=== PATIENT | female | born 1990 | race Caucasian/White ===

== ENCOUNTER 2018-09-02 15:23 | Emergency (ER) | payer OTHER ==
[2018-09-02 15:50] VITALS: BP 112/67; PULSE 71; TEMP 98.9; BMI 29.1
--- NOTE | 2018-09-02 15:59 | PDOC ---
Rapid Medical Evaluation Chief Complaint: Pain, Acute Time Seen by Provider: 09/02/18 15:51 Medical Evaluation: Allergies Allergy/AdvReac Type Severity Reaction Status Date / Time No Known Allergies Allergy Verified 09/02/18 15:46 Vital Signs Temp Pulse Resp BP Pulse Ox 98.9 F 71 18 112/67 99 09/02/18 15:47 09/02/18 15:47 09/02/18 15:47 09/02/18 15:47 09/02/18 15:47 09/02/18 15:55 I have performed a brief in-person evaluation of this patient. The patient presents with a chief complaint of: epigastric pain for over a month which started during and persistent after aa delivery a month ago. report 2 episodes of vomiting yesterday. report she was told during to decrease acid food intake Pertinent physical exam findings: mild epigastric pain . no rebound or gaurding. normal bowel sounds I have ordered the following: UA, UCX. abd ultrasound The patient will proceed to the ED for further evaluation. Discharge Disposition - Diagnosis Epigastric abdominal pain - Referrals - Patient Instructions - Post Discharge Activity
--- NOTE | 2018-09-02 16:36 | PDOC ---
History of Present Illness - General Chief Complaint: Pain, Acute Stated Complaint: ABD PAIN Time Seen by Provider: 09/02/18 15:51 History Source: Patient Exam Limitations: No Limitations - History of Present Illness Initial Comments: 09/02/18 19:24 Patient is a 28-year-old female status post 1 month ago who presents to the emergency department for epigastric pain. Patient states that she's had the pain for 3 days and his gotten worse. She states that she had similar pains while she was . The pain came and went but was never constant. She states that now she is thrown up twice due to the pain. She states that the pain feels like a burning sensation. Denies fevers, chills, difficulty breathing , diarrhea, constipation, frequency and urgency. Past History - Travel Traveled outside of the country in the last 30 days: No Close contact w/someone who was outside of country & ill: No - Past Medical History Allergies/Adverse Reactions: Allergies Allergy/AdvReac Type Severity Reaction Status Date / Time No Known Allergies Allergy Verified 09/02/18 15:46 Home Medications: Ambulatory Orders Famotidine [Pepcid -] 20 mg PO DAILY #7 tablet 09/02/18 COPD: No - Suicide/Smoking/Psychosocial Hx Smoking History: Never smoked Hx Alcohol Use: No Drug/Substance Use Hx: No Review of Systems - Review of Systems Able to Perform ROS?: Yes Comments:: 09/02/18 16:35 CONSTITUTIONAL: Absent: fever, chills, diaphoresis, generalized weakness, malaise, loss of appetite HEENT: Absent: rhinorrhea, nasal congestion, throat pain, throat swelling, difficulty swallowing, mouth swelling, ear pain, eye pain, visual Changes CARDIOVASCULAR: Absent: chest pain, loss of consciousness, palpitations, irregular heart rate, peripheral edema RESPIRATORY: Absent: cough, shortness of breath, dyspnea with exertion, orthopnea, wheezing, stridor, hemoptysis GASTROINTESTINAL: Present: abdominal pain Absent: abdominal pain, abdominal distension, nausea, vomiting, diarrhea, constipation, melena, hematochezia GENITOURINARY: Absent: dysuria, frequency, urgency, hesitancy, hematuria, flank pain, genital pain MUSCULOSKELETAL: Absent: myalgia, arthralgia, joint swelling SKIN: Absent: rash, itching, pallor HEMATOLOGIC/IMMUNOLOGIC: Absent: easy bleeding, easy bruising, lymphadenopathy, frequent infections ENDOCRINE: Absent: unexplained weight gain, unexplained weight loss, heat intolerance, cold intolerance NEUROLOGIC: Absent: headache, focal weakness or paresthesias, dizziness, unsteady gait, seizure, mental status changes, bladder or bowel incontinence PSYCHIATRIC: Absent: anxiety, depression, suicidal or homicidal ideation, hallucinations. Is the patient limited Kyrgyz proficient: No *Physical Exam - Vital Signs Last Vital Signs Temp Pulse Resp BP Pulse Ox 98.9 F 71 18 112/67 99 09/02/18 15:47 09/02/18 15:47 09/02/18 15:47 09/02/18 15:47 09/02/18 15:47 - Physical Exam Comments: 09/02/18 16:36 GENERAL: Well developed, well nourished. Awake and alert. No acute distress. HEENT: Normocephalic, atraumatic. PERRLA, EOMI. No conjunctival pallor. Sclera are non- icteric. Moist mucous membranes. Oropharynx is clear. NECK: Supple. Full ROM. No JVD. Carotid pulses 2+ and symmetric, without bruits. No thyromegaly. No lymphadenopathy. CARDIOVASCULAR: Regular rate and rhythm. No murmurs, rubs, or gallops. Distal pulses are 2+ and symmetric. PULMONARY: No evidence of respiratory distress. Lungs clear to auscultation bilaterally. No wheezing, rales or rhonchi. ABDOMINAL: TTP of the epigastric region. No TTP of the RUQ, (-) montanez sign. Soft. Non- distended. No rebound or guarding. No organomegaly. Normoactive bowel sounds. MUSCULOSKELETAL Normal range of motion at all joints. No bony deformities or tenderness. No CVA tenderness. EXTREMITIES: No cyanosis. No clubbing. No edema. No calf tenderness. SKIN: Warm and dry. Normal capillary refill. No rashes. No jaundice. NEUROLOGICAL: Alert, awake, appropriate. Cranial nerves 2-12 intact. No deficits to light touch and temperature in face, upper extremities and lower extremities. No motor deficits in the in face, upper extremities and lower extremities. Normoreflexic in the upper and lower extremities. Normal speech. Toes are down- going bilaterally. Gait is normal without ataxia. PSYCHIATRIC: Cooperative. Good eye contact. Appropriate mood and affect. ED Treatment Course - LABORATORY CBC & Chemistry Diagram: 09/02/18 16:50 09/02/18 16:50 Medical Decision Making - Medical Decision Making 09/02/18 19:27 Patient is a 28-year-old female who presented to [facility] for epigastric pain and tenderness for 3 days. Given history of present illness, feels like there is some element of reflux. GI cocktail ordered No leukocytosis at this time. Liver enzymes doubled, however total bilirubin is 0.6. Ultrasound ordered from [facility]. Shows cholelithiasis without evidence of cholecystitis at this time. Incidental hemangioma of the liver noted. Patient feels better after GI cocktail. Reports pain has resolved after Reglan, Benadryl and Pepcid. Pain most likely a mixture of gerd and biliary colic. Patient would like to be discharged home. Will DC home at this time with surgical consult. Patient also told to follow up with her primary care doctor. I discussed the physical exam findings, ancillary test results and final diagnoses with the patient. I answered all of the patient's questions. The patient was satisfied with the care received and felt comfortable with the discharge plan and treatment plan. The Patient agrees to follow up with the primary care physician/specialist within 24-72 hours. Return precautions were given. *DC/Admit/Observation/Transfer Diagnosis at time of Disposition: Epigastric abdominal pain Cholelithiasis Qualifiers: Cholelithiasis location: gallbladder Cholecystitis presence: without cholecystitis Biliary obstruction: without biliary obstruction Qualified Code(s) : K80.20 - Calculus of gallbladder without cholecystitis without obstruction - Discharge Dispostion Disposition: HOME Condition at time of disposition: Stable Decision to Admit order: No - Prescriptions Prescriptions: Famotidine [Pepcid -] 20 mg PO DAILY #7 tablet - Referrals Referrals: Roxy Mueller [Primary Care Provider] - Vel Torres MD [Staff Physician] - - Patient Instructions Printed Discharge Instructions: DI for Gallstones, DI for Gastroesophageal Reflux Disease (GERD) Additional Instructions: Lopez dolor es muy probablemente junior combinacin de reflujo y clculos biliares. Se observaron clculos biliares en lopez ultrasonido. Por favor, nash un seguimiento con el Dr. Torres, consulta quirrgica para junior evaluacin adicional de lopez vescula biliar. Yarelis junior dieta blanda que incluye arroz, tostadas y compota de manzana. Regrese al departamento de emergencias por fiebre, dolor o cualquier sntoma nuevo o que empeore. Your pain is most likely a combination of reflux and gallstones. There were gallstones seen on your ultrasound Please follow up with Dr. Torres, surgical consult for further evaluation of your gallbladder. She a bland diet including plain rice, toast and applesauce. Return to the emergency department for fevers, pain, or any new or worsening symptoms. - Post Discharge Activity Forms/Work/School Notes: Back to Work
[2018-09-02 16:38] LABS: HCG,QUALITATIVE URINE Negative
[2018-09-02 16:42] LABS: URINE APPEARANCE CLEAR; URINE BILIRUBIN NEGATIVE (<2.0 mg/dL); URINE COLOR LTYELLOW; URINE GLUCOSE (UA) NEGATIVE (NEGATIVE); URINE KETONE NEGATIVE (NEGATIVE); URINE LEUK ESTERASE TRACE (NEGATIVE); URINE NITRITE NEGATIVE (NEGATIVE); URINE PROTEIN NEGATIVE (NEGATIVE); URINE UROBILINOGEN NEGATIVE mg/dL (0.2-1.0)
[2018-09-02] MEDS ORDERED: FAMOTIDINE 20 MG/50 ML IVPB 20 MG/50 ML MG IVPB ONE ×2 (16:42→16:47)
[2018-09-02] MEDS ORDERED: METOCLOPRAMIDE HCL INJECTION 10 MG/2 ML VIAL IVPB ONE (16:42)
[2018-09-02] MEDS ORDERED: METOCLOPRAMIDE HCL INJECTION 10 MG/2 ML VIAL ONE (16:45)
[2018-09-02 16:50] LABS: EPI CELLS RARE /HPF (FEW); URINE MUCUS RARE
[2018-09-02 17:04] LABS: BASO % 0.9 % (0-2.0); EOS % 2.4 % (0-4.5); HEMATOCRIT 39.7 % (32.4-45.2); HEMOGLOBIN 12.7 GM/dL (10.7-15.3); MCH 29.7 pg (25.7-33.7); MEAN CELL VOLUME 92.9 fl (80-96); MONO % 9.7 % (3.8-10.2); PLATELET COUNT 252 K/MM3 (134-434); RBC 4.27 M/mm3 (3.60-5.2); WHITE BLOOD COUNT 8.5 K/mm3 (4.0-10.0)
[2018-09-02 17:38] LABS: ALBUMIN 3.7 g/dl (3.4-5.0); ALK PHOS 155 U/L (45-117); ANION GAP 9 MMOL/L (8-16); BILIRUBIN,TOTAL 0.6 mg/dL (0.2-1); BLOOD UREA NITROGEN 8 mg/dL (7-18); CALCIUM 8.8 mg/dL (8.5-10.1); CHLORIDE 104 mmol/L (98-107); CO2 28 mmol/L (21-32); CREATININE 0.6 mg/dL (0.55-1.3); GLUCOSE,RANDOM 74 mg/dL (74-106); LIPASE 242 U/L (73-393); SGOT/AST 62 U/L (15-37); SGPT/ALT 64 U/L (13-61); SODIUM 141 mmol/L (136-145)
[2018-09-02 17:51] LABS: POTASSIUM 4.7 mmol/L (3.5-5.1)
== END 2018-09-02 18:47 | disposition home or self-care (01) ==
LOC: JERFT 15:23
PROC: 3E033GC Introduction of Other Therapeutic Substance into Peripheral Vein, Percutaneous Approach (ICD-10-PCS; principal; 2018-09-02)
PROC: 3E033GC Introduction of Other Therapeutic Substance into Peripheral Vein, Percutaneous Approach (ICD-10-PCS; 2018-09-02)
PROC: 3E033GC Introduction of Other Therapeutic Substance into Peripheral Vein, Percutaneous Approach (ICD-10-PCS; 2018-09-02)
DX: O90.89 Other complications of the puerperium, not elsewhere classified (principal); O99.63 Diseases of the digestive system complicating the puerperium; K80.20 Calculus of gallbladder without cholecystitis without obstruction
CPT/HCPCS: 36415; 76705-TC; 80053; 81003; 81015; 83690; 84703; 85025; 87086; 96365; 96375; 99281-25

== ENCOUNTER 2018-09-03 16:09 | Inpatient (IN) | payer OTHER ==
[2018-09-03] MEDS ORDERED: SODIUM CHLORIDE 1,000 ML IV STA (16:26)
[2018-09-03] MEDS ORDERED: ACETAMINOPHEN 1000 MG/100 ML VIAL (NON FORMULARY) IVPB ONE (16:26)
[2018-09-03] MEDS ORDERED: ONDANSETRON 4 MG/2 ML VIAL IVPUSH ONE (16:27)
[2018-09-03] MEDS ORDERED: FAMOTIDINE 20 MG/50 ML IVPB 20 MG/50 ML MG IVPB ONE ×2 (16:27→16:54)
--- NOTE | 2018-09-03 16:27 | PDOC ---
Rapid Medical Evaluation Chief Complaint: Pain Time Seen by Provider: 09/03/18 16:23 Medical Evaluation: Allergies Allergy/AdvReac Type Severity Reaction Status Date / Time No Known Allergies Allergy Verified 09/03/18 16:22 09/03/18 16:23 Pt presents to the ED for epigastric pain and tenderness. Was evaluated yesterday and found to have gall stones, but no cholecysitis. Worsening pain today. States the pain came when eating Exam: pt appears uncomfortable. epigastric tenderness on exam Orders: Labs, urine, IV, US Pt to proceed to ED for further evaluation Discharge Disposition - Diagnosis Epigastric abdominal pain - Referrals - Patient Instructions - Post Discharge Activity
[2018-09-03] MEDS ORDERED: ACETAMINOPHEN INJECTION 100 ML IVPB ONE (16:53)
[2018-09-03] MEDS ORDERED: ONDANSETRON 4 MG/2 ML VIAL ONE (16:54)
[2018-09-03 16:57] LABS: BASO % 0.3 % (0-2.0); EOS % 0.3 % (0-4.5); HEMATOCRIT 41.4 % (32.4-45.2); HEMOGLOBIN 13.2 GM/dL (10.7-15.3); LYMPH % 5.9 % (8-40); MCH 29.7 pg (25.7-33.7); MCHC 31.8 g/dl (32.0-36.0); MEAN CELL VOLUME 93.2 fl (80-96); MEAN PLT VOLUME 8.7 fl (7.5-11.1); MONO % 7.3 % (3.8-10.2); NEUT % 86.2 % (42.8-82.8); PLATELET COUNT 246 K/MM3 (134-434); RBC 4.44 M/mm3 (3.60-5.2); RDW 14.5 % (11.6-15.6); WHITE BLOOD COUNT 17.2 K/mm3 (4.0-10.0)
[2018-09-03 17:03] LABS: HCG,QUALITATIVE URINE Positive
[2018-09-03 17:11] LABS: URINE APPEARANCE CLEAR; URINE BILIRUBIN NEGATIVE (<2.0 mg/dL); URINE COLOR DKYELLOW; URINE GLUCOSE (UA) NEGATIVE (NEGATIVE); URINE KETONE NEGATIVE (NEGATIVE); URINE LEUK ESTERASE TRACE (NEGATIVE); URINE NITRITE NEGATIVE (NEGATIVE); URINE PROTEIN NEGATIVE (NEGATIVE); URINE UROBILINOGEN 4.0 E.U/dl mg/dL (0.2-1.0)
--- NOTE | 2018-09-03 17:14 | PDOC ---
History of Present Illness - General Chief Complaint: Pain Stated Complaint: ABD PAIN Time Seen by Provider: 09/03/18 16:23 - History of Present Illness Initial Comments: Rai Browning is a 28yo woman 1 mo (uncomplicated c- section) who was seen in the ED yesterday with epigastric pain. she re-presents today with worsening pain. Yesterday, she reported burning epigastric pain that would come and go, present for 3 days, 2 episodes of emesis. She had similar pain when . She had an ultrasound showing gallstones and gallbladder distension but no wall thickening or pericholecystic fluid. Her LFTs were very mildly elevated, and remainder of her labs were not concerning. She felt better after receiving a GI cocktail and was discharged home with suspected GERD and biliary colic. Today, Ms Mitchell was initially feeling well in the morning. She had cereal for breakfast without any issues. After rice at lunch, she started to have "11/ 10" non-radiating epigastric pain and several episodes of emesis. She took some of the reglan prescribed yesterday without relief. She has had 4 episodes of vomiting total, and her pain has continued to be severe. She is unable to describe the pain, saying that "it just hurts." She has not had any fevers over the past day. 09/03/18 17:44 Past History - Past Medical History Allergies/Adverse Reactions: Allergies Allergy/AdvReac Type Severity Reaction Status Date / Time No Known Allergies Allergy Verified 09/03/18 16:22 Home Medications: Ambulatory Orders Metoclopramide HCl [Reglan] 10 mg PO TID 09/03/18 COPD: No - Immunization History Immunization Up to Date: Yes - Suicide/Smoking/Psychosocial Hx Smoking History: Never smoked Hx Alcohol Use: No Drug/Substance Use Hx: No Review of Systems - Review of Systems Comments:: General: No fevers, no chills, no weight or appetite change, no malaise HEENT: No changes in vision, no changes in hearing, no congestion, no sore throat CV: No chest pain, no palpitations, no LE edema Pulm: No SOB, no cough, no wheezing GI: See HPI. No change in bowel habits : No frequency, no urgency, no dysuria Musc: No back pain, no joint swelling, no recent injury Skin: No rash, no lesions, no erythema Endo: No excessive thirst, no heat/cold intolerance Heme: No unusual bruising or bleeding, no swollen glands Neuro: No syncope, no numbness/tingling, no focal weakness Vasc: No claudication Psych: No recent change in mood, no SI or HI *Physical Exam - Vital Signs Last Vital Signs Temp Pulse Resp BP Pulse Ox 97.2 F L 97 H 18 116/81 100 09/03/18 16:22 09/03/18 16:22 09/03/18 16:22 09/03/18 16:22 09/03/18 16:22 - Physical Exam Comments: General: Uncomfortable, in no acute distress HEENT: PERRL, EOMI, MMM, voice normal, normal neck ROM Cards: RRR, no murmur appreciated Pulm: Comfortable on room air, clear to auscultation bilaterally Abd: Soft, nondistended. Moderate epigastric tenderness. Negative Silveira's sign. : No CVA tenderness Ext: Atraumatic. No LE edema. ROM intact. Strength 5/5 and equal bilaterally Vasc: Extremities WWP. Skin: Normal color, no rashes or lesions Neuro: A&Ox3, CN grossly intact, normal speech, motor/sensory grossly intact and symmetric Psych: Mood appropriate to situation ED Treatment Course - LABORATORY CBC & Chemistry Diagram: 09/03/18 16:53 09/03/18 16:53 - ADDITIONAL ORDERS Additional order review: Laboratory Results 09/03/18 16:53 Urine HCG, Qual Positive 09/03/18 16:53 RBC 4.44 MCV 93.2 MCHC 31.8 L RDW 14.5 MPV 8.7 Neutrophils % 86.2 H D Lymphocytes % 5.9 L D Monocytes % 7.3 Eosinophils % 0.3 D Basophils % 0.3 - Medications Given in the ED: ED Medications Discontinued Medications Generic Name Dose Route Start Last Admin Trade Name Freq PRN Reason Stop Dose Admin Acetaminophen 1,000 mg 09/03/18 16:26 09/03/18 17:06 Ofirmev Injection - IVPB 09/03/18 16:27 1,000 mg ONCE ONE Administration Famotidine/Sodium Chloride 20 mg in 50 mls @ 100 mls/hr 09/03/18 16:27 10/30/ 18 17:06 Pepcid 20 Mg Premixed Ivpb - IVPB 09/03/18 16:56 100 mls/hr ONCE ONE Administration Ondansetron HCl 4 mg 09/03/18 16:27 09/03/18 17:06 Zofran Injection IVPUSH 09/03/18 16:28 4 mg ONCE ONE Administration Medical Decision Making - Medical Decision Making 09/03/18 17:45 Rai Browning is an otherwise healthy 28yo woman 1 month post c- section who presents to the ED for worsening epigastric pain and emesis. She was seen in the ED yesterday and found to have gallstones without cholelithiasis and suspected GERD. - Given worsening of symptoms, concern for cholecystitis - CBC, CMP, lipase, UA, urine preg, repeat US ordered in E - Urine preg positive, was negative yesterday - bHCG added - WBC returned at 17 from 8 yesterday. Remainder of labs pending 09/03/18 17:58 - Labs notable for WBC 17.2 from 8.5, tbili 1.4 from 0.6, lipase >34817 from 242. Urine with 2+ blood, urobilinogen 4.0 from negative, 4 wbc, 14 rbc's. - Patient at ultrasound - Suspect gallstone pancreatitis - Need to verify PMD. Will admit with GI and surgery consults 09/03/18 19:06 - Admit to hospitalist service. Waiting for call back for sign out - Spoke to Dr Kenney. Requested LR@150/hr, blood cultures, unasyn and flagyl, MRCP order. Per request also placed orders for AM LFTs, direct bili, CRP, amylase and lipase for 6am. 09/03/18 19:28 - Spoke to Dr Licea. Sending repeat amylase and lipase now. Requests NPO now, IV tylenol for pain rather than morphine. - Microblog sent to medicine team with recommendation updates from Dr Kenney and Dr Licea. Seen and discussed with Dr Rangel. Jennifer Paredes PGY1 *DC/Admit/Observation/Transfer Diagnosis at time of Disposition: Epigastric abdominal pain - Referrals - Patient Instructions - Post Discharge Activity
[2018-09-03 17:22] LABS: EPI CELLS RARE /HPF (FEW); URINE MUCUS RARE
[2018-09-03 17:28] LABS: INR 1.07 (0.83-1.09); PROTHROMBIN TIME (PATIENT) 12.6 SEC (9.7-13.0)
--- NOTE | 2018-09-03 17:40 | PDOC ---
Attending Attestation - HPI HPI: 09/03/18 17:46 The patient is a 28-year-old female, with no past medical history, s/p 1 month , who presents to the ED with upper abdominal pain. The patient was seen in the ED yesterday and had an US that revealed gallstones. Patient was discharged with the diagnosis of GERD. Patient developed the pain today after eating rice. The patient denies any fevers, chills, nausea, vomiting, or diarrhea. Allergies: NKA - Physicial Exam PE: 09/03/18 17:47 GENERAL: Awake, alert, and fully oriented, in no acute distress HEAD: No signs of trauma EYES: PERRLA, EOMI, sclera anicteric, conjunctiva clear ENT: Auricles normal inspection, hearing grossly normal, nares patent, oropharynx clear without exudates. Moist mucosa NECK: Normal ROM, supple, no lymphadenopathy, JVD, or masses LUNGS: Breath sounds equal, clear to auscultation bilaterally. No wheezes, and no crackles HEART: Regular rate and rhythm, normal S1 and S2, no murmurs, rubs or gallops ABDOMEN: (+)Tenderness to the epigastric region, mild tenderness to palpation of the RUQ. Silveira's sign negative. Soft, normoactive bowel sounds. No guarding , no rebound. No masses EXTREMITIES: Normal range of motion, no edema. No clubbing or cyanosis. No cords, erythema, or tenderness NEUROLOGICAL: Cranial nerves II through XII grossly intact. Normal speech, normal gait SKIN: Warm, Dry, normal turgor, no rashes or lesions noted. <Dana Arceo - Last Filed: 09/03/18 17:49> - Resident Resident Name: Jennifer Paredes - ED Attending Attestation I have performed the following: I have examined & evaluated the patient, The case was reviewed & discussed with the resident, I agree w/resident's findings & plan, Exceptions are as noted - Medical Decision Making 09/03/18 17:35 A portion of this note was documented by scribe services under my direction. I have reviewed the details of the note, within reason, and agree with the documentation with the following case summary and management plan written by me. Patient treated in the ED. Nursing notes are reviewed and incorporated into the medical decision-making. Vital signs reviewed. Peripheral IV access obtained by the nurse, laboratory studies are drawn and sent, reviewed and interpreted by myself. Vital Signs Temp Pulse Resp BP Pulse Ox 97.2 F L 97 H 18 116/81 100 09/03/18 16:22 09/03/18 16:22 09/03/18 16:22 09/03/18 16:22 09/03/18 16:22 28-year-old female patient with no past medical history, status post 1 month via presents with persistent upper abdominal pain. Patient was seen here yesterday had ultrasound performed which demonstrated gallstones. White count was unremarkable the patient was sent home with diagnoses of GERD. Today, the patient ate rice and had recurrence of pain. No fevers or chills. Patient has upper abdominal pain. I'm concerned for acute cholecystitis. White count is 17. We'll obtain a repeat ultrasound and if equivocal, we'll admit for MRCP. Will likely need empiric antibiotics and surgical consult and admission to the hospital. 09/03/18 17:55 CBC, BMP 09/03/18 16:53 09/03/18 16:53 CMP Sodium 139 mmol/L (136-145) 09/03/18 16:53 Potassium 3.4 mmol/L (3.5-5.1) L 09/03/18 16:53 Chloride 103 mmol/L (98-107) 09/03/18 16:53 Carbon Dioxide 27 mmol/L (21-32) 09/03/18 16:53 Anion Gap 9 MMOL/L (8-16) 09/03/18 16:53 BUN 9 mg/dL (7-18) 09/03/18 16:53 Creatinine 0.7 mg/dL (0.55-1.3) 09/03/18 16:53 Creat Clearance w eGFR > 60 (>60) 09/03/18 16:53 Random Glucose 116 mg/dL (74-106) H 09/03/18 16:53 Calcium 8.8 mg/dL (8.5-10.1) 09/03/18 16:53 Total Bilirubin 1.4 mg/dL (0.2-1) H 09/03/18 16:53 AST 55 U/L (15-37) H 09/03/18 16:53 ALT 69 U/L (13-61) H 09/03/18 16:53 Alkaline Phosphatase 189 U/L (45-117) H 09/03/18 16:53 Total Protein 7.8 g/dl (6.4-8.2) 09/03/18 16:53 Albumin 3.8 g/dl (3.4-5.0) 09/03/18 16:53 Lipase > 84300 U/L (73-393) H 09/03/18 16:44 Beta HCG, Quant < 1.0 mIU/ml 09/03/18 16:44 Lipase > 54778. I'm concerned for gallstone pancreatitis. GI and surgery consult. Admit. <Kirby Rangel - Last Filed: 09/03/18 18:00> Heart Score/ECG Review #1 ECG reviewed & interpreted by me at: 17:35 09/03/18 17:40 NSR 75, no std/seth, T wave flat III, normal axis, normal intervals, QTC 453 msec <Kirby Rangel - Last Filed: 09/03/18 18:00> Attestations - Attestations 09/03/18 17:49 Documentation prepared by Dana Arceo, acting as medical dir for Kirby Rangel MD. <Dana Arceo - Last Filed: 09/03/18 17:49>
[2018-09-03 17:43] LABS: ALBUMIN 3.8 g/dl (3.4-5.0); ALK PHOS 189 U/L (45-117); ANION GAP 9 MMOL/L (8-16); BILIRUBIN,TOTAL 1.4 mg/dL (0.2-1); BLOOD UREA NITROGEN 9 mg/dL (7-18); CALCIUM 8.8 mg/dL (8.5-10.1); CHLORIDE 103 mmol/L (98-107); CO2 27 mmol/L (21-32); CREATININE 0.7 mg/dL (0.55-1.3); GLUCOSE,RANDOM 116 mg/dL (74-106); POTASSIUM 3.4 mmol/L (3.5-5.1); SGOT/AST 55 U/L (15-37); SGPT/ALT 69 U/L (13-61); SODIUM 139 mmol/L (136-145); TOT PROT 7.8 g/dl (6.4-8.2)
[2018-09-03 17:45] LABS: LIPASE > 30000 U/L (73-393)
--- NOTE | 2018-09-03 18:29 | HP ---
CHIEF COMPLAINT: abdominal pain with vomiting PCP: does not have one HISTORY OF PRESENT ILLNESS: 28 year old female from [facility] with no PMHx presented to the hospital with 2 days history of med abdominal pain 10/10 radiating to her back, worsen with food improved with pain killer in ED , associated with vomiting x4 of food particles. she presented to [facility] Ed yesterday with the same complaint and was sent home with metochlopramid and Ranitine prescription. pt denies any headache, fever, chills, N/D/C, denies any chest pain , palpitation or sob , she denies any urinary symptoms, joint pain or swelling in her feet. Pt gave a last month with C section , she had similiar symptoms during pregancy . ER course was notable for: (1)Cbc, CMP (2)Abdomen US (3)Morphine , IV fluids Recent Travel:[place] , came from [facility] 10 months ago. PAST MEDICAL HISTORY:denies PAST SURGICAL HISTORY: Skin lumb removal on left flank , C section X 1 Social History: Smoking:denies Alcohol:denies Drugs: denies Family History:Father with DM Allergies No Known Allergies Allergy (Verified 09/03/18 16:22) HOME MEDICATIONS: Home Medications Medication Instructions Recorded Metoclopramide HCl [Reglan] 10 mg PO TID 09/03/18 REVIEW OF SYSTEMS CONSTITUTIONAL: Absent: fever, chills, diaphoresis, generalized weakness, malaise, loss of appetite, weight change HEENT: Absent: rhinorrhea, nasal congestion, throat pain, throat swelling, difficulty swallowing, mouth swelling, ear pain, eye pain, visual changes CARDIOVASCULAR: Absent: chest pain, syncope, palpitations, irregular heart rate, lightheadedness , peripheral edema RESPIRATORY: Absent: cough, shortness of breath, dyspnea with exertion, orthopnea, wheezing, stridor, hemoptysis GASTROINTESTINAL: Absent: abdominal pain, abdominal distension, nausea, vomiting, diarrhea, constipation, melena, hematochezia GENITOURINARY: Absent: dysuria, frequency, urgency, hesitancy, hematuria, flank pain, genital pain MUSCULOSKELETAL: Absent: myalgia, arthralgia, joint swelling, back pain, neck pain SKIN: Absent: rash, itching, pallor HEMATOLOGIC/IMMUNOLOGIC: Absent: easy bleeding, easy bruising, lymphadenopathy, frequent infections ENDOCRINE: Absent: unexplained weight gain, unexplained weight loss, heat intolerance, cold intolerance NEUROLOGIC: Absent: headache, focal weakness or paresthesias, dizziness, unsteady gait, seizure, mental status changes, bladder or bowel incontinence PSYCHIATRIC: Absent: anxiety, depression, suicidal or homicidal ideation, hallucinations. PHYSICAL EXAMINATION Vital Signs - 24 hr 09/03/18 16:22 Temperature 97.2 F L Pulse Rate 97 H Respiratory 18 Rate Blood Pressure 116/81 O2 Sat by Pulse 100 Oximetry (%) GENERAL: AAOx3 in moderate distress HEAD: NC/AT EYES: EOMI, Conjunctiva clear, sclera anicteric ENT: moist mucous membrane NECK: Supple, no JVD LUNGS: CTA B/L, no crackles no wheezing no accessory muscle use. HEART: RRR, NSR, normal s1, s2, murmur no M/R/G ABDOMEN: Soft, ND, mid epigastric and med abdominal tenderness , +BS 4 Q, left CVA Tenderness.Silveira + LOWER EXTREMITIES: no edema, +2DP pulse, NEUROLOGICAL: No focal deficit. Normal speech. gait not observed. PSYCHIATRIC: Cooperative. Good eye contact. Appropriate mood and affect. SKIN: Warm, dry, Laboratory Results - last 24 hr 09/03/18 09/03/18 09/03/18 16:44 16:53 16:53 WBC 17.2 H RBC 4.44 Hgb 13.2 Hct 41.4 MCV 93.2 MCH 29.7 MCHC 31.8 L RDW 14.5 Plt Count 246 MPV 8.7 Absolute Neuts (auto) 14.8 H Neutrophils % 86.2 H D Lymphocytes % 5.9 L D Monocytes % 7.3 Eosinophils % 0.3 D Basophils % 0.3 Nucleated RBC % 0 PT with INR 12.60 INR 1.07 Sodium Potassium Chloride Carbon Dioxide Anion Gap BUN Creatinine Creat Clearance w eGFR Random Glucose Calcium Total Bilirubin AST ALT Alkaline Phosphatase Total Protein Albumin Lipase > 61063 H Beta HCG, Quant < 1.0 Urine Color Urine Appearance Urine pH Ur Specific [place] Urine Protein Urine Glucose (UA) Urine Ketones Urine Blood Urine Nitrite Urine Bilirubin Urine Urobilinogen Ur Leukocyte Esterase Urine WBC (Auto) Urine RBC (Auto) Ur Epithelial Cells Urine Mucus Urine HCG, Qual 09/03/18 09/03/18 16:53 16:53 WBC RBC Hgb Hct MCV MCH MCHC RDW Plt Count MPV Absolute Neuts (auto) Neutrophils % Lymphocytes % Monocytes % Eosinophils % Basophils % Nucleated RBC % PT with INR INR Sodium 139 Potassium 3.4 L Chloride 103 Carbon Dioxide 27 Anion Gap 9 BUN 9 Creatinine 0.7 Creat Clearance w eGFR > 60 Random Glucose 116 H Calcium 8.8 Total Bilirubin 1.4 H AST 55 H ALT 69 H Alkaline Phosphatase 189 H Total Protein 7.8 Albumin 3.8 Lipase Beta HCG, Quant Urine Color Dkyellow Urine Appearance Clear Urine pH 5.0 Ur Specific [place] 1.011 Urine Protein Negative Urine Glucose (UA) Negative Urine Ketones Negative Urine Blood 2+ H Urine Nitrite Negative Urine Bilirubin Negative Urine Urobilinogen 4.0 e.u/dl H Ur Leukocyte Esterase Trace Urine WBC (Auto) 4 Urine RBC (Auto) 14 Ur Epithelial Cells Rare Urine Mucus Rare Urine HCG, Qual Positive CBC, BMP 09/03/18 16:53 09/03/18 16:53 ASSESSMENT/PLAN: 28 year old female isis speaking returned to the ED with 2 days history of abdominal pain and vomiting was found to have pancreatitis gallstones will be admitted to med-surg for further evaluation # Acute abdominal pain due to pancreatitis gall stones * Abdominal pain 7-07/15 , with 4 times vomiting * Lipase 30, 000, WBC 17.000, Bili 1.4 total , AST 55, ALT 69 * NPO * IV fluids * pain control with morphine Q 4 hr * GI consult for possible ERCP * PT, PTT , INR * cbc , cmp in AM , Mg , P * Bilirubin total and direct * Amylase and lipase in AM * abx * Blood cx ,UA urine cx, cxR # FEN * F: NS @ 125 CC/hr * E: hypokalemia , replinished as needed , repeat BMP in AM * N: NPO till ERCP # Proph : pneumatic compression # Dispo: admit to med surg # Full code Visit type - Emergency Visit Emergency Visit: Yes ED Registration Date: 09/03/18 Care time: The patient presented to the Emergency Department on the above date and was hospitalized for further evaluation of their emergent condition. - New Patient This patient is new to me today: Yes Date on this admission: 09/03/18 - Critical Care Critical Care patient: No
[2018-09-03] MEDS ORDERED: LACTATED RINGERS SOLUTION 1,000 ML/1,000 ML INFUS.BAG IV SCH (19:15)
[2018-09-03] MEDS ORDERED: ONDANSETRON 4 MG/2 ML VIAL IVPUSH PRN (19:42)
--- NOTE | 2018-09-03 19:43 | PN ---
Teaching Attending Note Name of Resident: Angela Teixeira ATTENDING PHYSICIAN STATEMENT I saw and evaluated the patient. I reviewed the resident's note and discussed the case with the resident. I agree with the resident's findings and plan as documented. SUBJECTIVE: Seen and examined; she is a 28 y/o HF presenting to the ER for the second day in a row for upper abdominal pain. Please see the resident's note for further historical information. In summation, she has no PMH and is and takes no chronic medications. She is hemodynamically stable and afebrile but does have an elevated WBC count. She came back today because the pain was worse. US GB today shows sludge in the GB with CBD 5cm and recommended MRCP; the patient's AST/ALT, Alk Phos, and Total Bili are elevated today which is new from yesterday. Lipase >30k. Admitting to the medicine service for acute pancreatitis likely due to biliary etiology and consulting GI and Surgery 10 sys ROS done and negative aside from HPI Denies EtOH, tobacco abuse. From [place]. FH asked and noncontributory PMH and PSH per chart OBJECTIVE: VSS and imaging reviewed NAD, resting in bed, AAO Tender in upper abd; ND, +BS RRR S1/2 no mgr Lungs CTAB with sym exp Trachea midline without any JVD NC AT EOMI PERRLA Mood normal, behavior appropriate CN 2-12 wnl, no FND ASSESSMENT AND PLAN: 1) Acute Pancreatitis -Patient presents with elevated LFTs and Lipase >30k; suspicious for acute pancreatitis from biliary source. US results noted; suspecting biliary etiology -Consulting GI and Surgery -MRCP ordered for AM -Trend CMP, monitor clinically. If she decompensates tonight can check CT but likely can rely on MRCP for imaging. Check TB as from endemic area, check lipids. Monitor blood cultures. -As elevated WBC will monitor fevers and empirically cover with abx -LR @150cc/hr; monitor Is and Os. 2) Transaminitis Full Code
[2018-09-03] MEDS ORDERED: MORPHINE SULFATE 2 MG/ML VIAL IVPUSH PRN (19:45)
[2018-09-03] MEDS: LACTATED RINGERS SOLUTION 1,000 ML IV SCH (19:54)
--- NOTE | 2018-09-03 20:52 | CONSULT ---
Consult Consult Specialty:: General Surgery Referred by:: Jennifer Paredes Reason for Consultation:: gallstone pancreatitis - History of Present Illness Chief Complaint: epigastric pain, n/v History of Present Illness: 28yo [place] F, 1 month from uncomplicated 1 week past due date, presented to ER with epigastric pain radiating to back associated with multiple episodes of N/V. She was seen in ER yesterday for similar symptoms , but today was much worse, both in pain and vomiting. She also experienced similar symptoms about 5 months ago during . Yesterday, labs were normal except for mildly elevated LFTs with normal bili, and US showed gallstones with distended gallbladder and enlarged cbd at 6mm. She felt better after GI cocktail and reglan, and wanted to go home; she was discharged with reglan prn, which she only took one of at home. Today, she had worse pain and more vomiting after eating and returned to ER. Labs now significant for wbc 17, bili 1.4, LFTs still double normal, lipase >30,000. US repeated showing similar findings, stones and sludge in gallbladder, cbd 5mm. Surgery is asked to assess. She is seen and examined in ER holding area, at bedside. He speaks Ecu[place] and assisted with history at her request. She indicated her pain is better but still present and points to epigastric area. She is her son, but understands she will have to pump and dump for now. IV fluids and antibiotics have been started, at GI's request, who will see her as well. Last normal BM was yesterday. and c/s delivery were uncomplicated. She is only taking vitamins at home. - History Source History Provided By: Family Member (), Medical Record Limitations to Obtaining History: Language Barrier (Sinhala - facilitated history and translation at bedside at pt's request) - Past Medical History Hepatobiliary: Yes: Cholelithiasis ...: No (1 month ) - Past Surgical History Past Surgical History: Yes: (08/01/18) - Alcohol/Substance Use Hx Alcohol Use: No History of Substance Use: reports: None - Smoking History Smoking history: Never smoked - Social History Usual Living Arrangement: With Spouse ADL: Independent Occupation: not employed Place of : [place] ([place] Came to [place]year[place] 2016 History of Recent Travel: No Home Medications - Allergies Allergies/Adverse Reactions: Allergies Allergy/AdvReac Type Severity Reaction Status Date / Time No Known Allergies Allergy Verified 09/03/18 16:22 - Home Medications Home Medications: Ambulatory Orders Metoclopramide HCl [Reglan] 10 mg PO TID 09/03/18 Pnv No.95/Ferrous Fum/Folic AC [ Multivitamin Tablet] 1 each PO DAILY Family Disease History - Family Disease History Family Disease History: Diabetes: Father Other Family History: cousin had gallbladder out Review of Systems - Review of Systems Constitutional: denies: Chills, Fever Eyes: reports: Other (reading glasses). denies: Recent Change in Vision HENT: denies: Difficult Swallowing, Throat Pain Neck: denies: Swollen Glands, Tenderness Cardiovascular: denies: Chest Pain, Palpitations Respiratory: denies: Cough, SOB Gastrointestinal: reports: Abdominal Pain (with hpi), Nausea (with hpi), Vomiting (with hpi). denies: Constipation, Diarrhea Genitourinary: denies: Burning, Dysuria Musculoskeletal: reports: Back Pain (with hpi (through from epigastrium)). denies: Joint Pain, Muscle Pain Integumentary: denies: Change in Color, Rash Neurological: denies: Dizziness, Headache Psychiatric: denies: Anxiety, Depression Physical Exam Vital Signs: Vital Signs Temperature 97.2 F L 09/03/18 16:22 Pulse Rate 97 H 09/03/18 16:22 Respiratory Rate 18 09/03/18 16:22 Blood Pressure 116/81 09/03/18 16:22 O2 Sat by Pulse Oximetry (%) 100 09/03/18 16:22 Constitutional: Yes: Well Nourished, No Distress, Calm Eyes: Yes: Conjunctiva Clear, EOM Intact. No: Sclera Icterus HENT: Yes: Atraumatic, Normocephalic Neck: Yes: Supple, Trachea Midline Cardiovascular: Yes: Regular Rate and Rhythm Respiratory: Yes: Regular, CTA Bilaterally Gastrointestinal: Yes: Soft, Hypoactive Bowel Sounds, Tenderness (epigastric and RUQ), Tenderness, Epigastrium. No: Distention, Tenderness, Rebound ...Rectal Exam: Yes: Deferred Renal/: No: CVA Tenderness - Left, CVA Tenderness - Right Musculoskeletal: No: Joint Stiffness, Joint Swelling Extremities: No: Cool, Cyanosis Edema: No Peripheral Pulses WNL: Yes Integumentary: Yes: Incision (Pfannenstiel, healed). No: Jaundice, Rash Wound/Incision: Yes: Clean/Dry, Well Approximated, Open to air Neurological: Yes: Alert, Oriented Psychiatric: Yes: Alert, Oriented Labs: CBC, BMP 09/03/18 16:53 09/03/18 16:53 CMP Sodium 139 mmol/L (136-145) 09/03/18 16:53 Potassium 3.4 mmol/L (3.5-5.1) L 09/03/18 16:53 Chloride 103 mmol/L (98-107) 09/03/18 16:53 Carbon Dioxide 27 mmol/L (21-32) 09/03/18 16:53 Anion Gap 9 MMOL/L (8-16) 09/03/18 16:53 BUN 9 mg/dL (7-18) 09/03/18 16:53 Creatinine 0.7 mg/dL (0.55-1.3) 09/03/18 16:53 Creat Clearance w eGFR > 60 (>60) 09/03/18 16:53 Random Glucose 116 mg/dL (74-106) H 09/03/18 16:53 Calcium 8.8 mg/dL (8.5-10.1) 09/03/18 16:53 Total Bilirubin 1.4 mg/dL (0.2-1) H 09/03/18 16:53 AST 55 U/L (15-37) H 09/03/18 16:53 ALT 69 U/L (13-61) H 09/03/18 16:53 Alkaline Phosphatase 189 U/L (45-117) H 09/03/18 16:53 Total Protein 7.8 g/dl (6.4-8.2) 09/03/18 16:53 Albumin 3.8 g/dl (3.4-5.0) 09/03/18 16:53 Lipase > 06140 U/L (73-393) H 09/03/18 16:44 Beta HCG, Quant < 1.0 mIU/ml 09/03/18 16:44 wbc up from 8.5 yesterday bili up from 0.6 yesterday LFTs otherwise about the same lipase 242 yesterday INR, PTT INR 1.07 (0.83-1.09) 09/03/18 16:53 Urine Test Results Urine Color Dkyellow 09/03/18 16:53 Urine Appearance Clear 09/03/18 16:53 Urine pH 5.0 (5.0-8.0) 09/03/18 16:53 Ur Specific [place] 1.011 (1.010-1.035) 09/03/18 16:53 Urine Protein Negative (NEGATIVE) 09/03/18 16:53 Urine Glucose (UA) Negative (NEGATIVE) 09/03/18 16:53 Urine Ketones Negative (NEGATIVE) 09/03/18 16:53 Urine Blood 2+ (NEGATIVE) H 09/03/18 16:53 Urine Nitrite Negative (NEGATIVE) 09/03/18 16:53 Urine Bilirubin Negative (<2.0 mg/dL) 09/03/18 16:53 Ur Leukocyte Esterase Trace (NEGATIVE) 09/03/18 16:53 Ur Epithelial Cells Rare /HPF (FEW) 09/03/18 16:53 Urine Mucus Rare 09/03/18 16:53 Imaging - Results Ultrasound: Report Reviewed, Image Reviewed (images reviewed from yesterday and today - multiple small gallstones, some sludge, distended gb, dilated cbd/chd at 5-6mm (pt age 28), no wall thickening or pericholecystic fluid) MRI: Pending Problem List - Problems (1) Acute biliary pancreatitis without infection or necrosis Assessment/Plan: admitted to medicine NPO until pain/tenderness resolve generous IV hydration MRCP pending GI consultation for possible ERCP trend labs including amylase, lipase GI requested IV antibiotics, Unasyn and Flagyl pain meds prn - nonnarcotics first line, morphine breakthrough only discussed possible cholecystectomy with pt and , but timing and approach will have to be considered further pending above and given recent open surgery with healing scar discussed with Dr. Momin of medical team Code(s): K85.10 - BILIARY ACUTE PANCREATITIS WITHOUT NECROSIS OR INFECTION (2) Calculus of gallbladder and bile duct w/o cholecystitis or obstruction Code(s): K80.70 - CALCULUS OF GB AND BILE DUCT W/O CHOLECYST W/O OBSTRUCTION (3) Disease of digestive system complicating puerperium Assessment/Plan: 1 month - will need to pump & dump until 48 hours after last contraindicated medication intake Code(s): O99.63 - DISEASES OF THE DIGESTIVE SYSTEM COMPLICATING THE PUERPERIUM (4) Epigastric abdominal pain Code(s): R10.13 - EPIGASTRIC PAIN (5) Nausea and vomiting Code(s): R11.2 - NAUSEA WITH VOMITING, UNSPECIFIED Qualifiers: Vomiting type: unspecified Vomiting Intractability: non-intractable Qualified Code(s): R11.2 - Nausea with vomiting, unspecified
[2018-09-03] MEDS: AMPICILLIN NA/SULBACTAM NA 3 GM in SODIUM CHLORIDE 100 ML IVPB SCH (21:05)
[2018-09-03 21:43] LABS: AMYLASE > 1300 U/L (25-115); LIPASE 18735 U/L (73-393)
[2018-09-03] MEDS: KCL 10 MEQ IVPB 10 MEQ/100 ML INFUS.BAG IVPB SCH (22:27)
[2018-09-03] MEDS ORDERED: KCL 10 MEQ IVPB 10 MEQ/100 ML INFUS.BAG IVPB ONE (22:30)
[2018-09-04] MEDS: KCL 10 MEQ IVPB 10 MEQ/100 ML INFUS.BAG IVPB SCH (00:19)
[2018-09-04 00:34] VITALS: BMI 27.3
[2018-09-04] MEDS: AMPICILLIN NA/SULBACTAM NA 3 GM in SODIUM CHLORIDE 100 ML IVPB SCH ×3 (02:32→17:59)
[2018-09-04] MEDS: MORPHINE SULFATE 2 MG/ML VIAL IVPUSH PRN ×2 (03:37→09:58)
[2018-09-04] MEDS ORDERED: PT OWN MED DRAWER 7, Y5N ONE ×3 (06:01→17:47)
[2018-09-04] MEDS: LACTATED RINGERS SOLUTION 1,000 ML IV SCH ×2 (06:41→14:46)
[2018-09-04 07:35] LABS: BASO % 0.1 % (0-2.0); EOS % 0.1 % (0-4.5); HEMATOCRIT 38.5 % (32.4-45.2); HEMOGLOBIN 12.2 GM/dL (10.7-15.3); LYMPH % 9.3 % (8-40); MCH 29.2 pg (25.7-33.7); MCHC 31.6 g/dl (32.0-36.0); MEAN CELL VOLUME 92.3 fl (80-96); MEAN PLT VOLUME 8.9 fl (7.5-11.1); MONO % 8.9 % (3.8-10.2); NEUT % 81.6 % (42.8-82.8); PLATELET COUNT 226 K/MM3 (134-434); RBC 4.17 M/mm3 (3.60-5.2); RDW 14.1 % (11.6-15.6); WHITE BLOOD COUNT 11.3 K/mm3 (4.0-10.0)
[2018-09-04 07:49] LABS: INR 1.21 (0.83-1.09); PROTHROMBIN TIME (PATIENT) 14.3 SEC (9.7-13.0)
[2018-09-04 07:51] LABS: ACTIVATED PTT 32.4 SECONDS (25.2-36.5)
[2018-09-04 08:05] LABS: CHOLESTEROL 151 mg/dL (50-200); HDL CHOLESTEROL 43 mg/dL (40-60); TRIGLYCERIDES 70 mg/dL (0-150)
[2018-09-04 08:11] LABS: ALBUMIN 3.3 g/dl (3.4-5.0); ALK PHOS 145 U/L (45-117); ANION GAP 8 MMOL/L (8-16); BILIRUBIN,TOTAL 0.6 mg/dL (0.2-1); BLOOD UREA NITROGEN 6 mg/dL (7-18); CALCIUM 8.7 mg/dL (8.5-10.1); CHLORIDE 104 mmol/L (98-107); CO2 25 mmol/L (21-32); CREATININE 0.6 mg/dL (0.55-1.3); GLUCOSE,RANDOM 85 mg/dL (74-106); PHOSPHOROUS 3.6 mg/dL (2.5-4.9); POTASSIUM 3.8 mmol/L (3.5-5.1); SGOT/AST 27 U/L (15-37); SGPT/ALT 48 U/L (13-61); SODIUM 138 mmol/L (136-145); TOT PROT 6.9 g/dl (6.4-8.2)
[2018-09-04 08:33] LABS: AMYLASE > 1300 U/L (25-115); BILIRUBIN,DIRECT 0.2 mg/dL (0.0-0.2)
--- NOTE | 2018-09-04 10:57 | EKG ---
Test Reason : Blood Pressure : / mmHG Vent. Rate : 075 BPM Atrial Rate : 075 BPM P-R Int : 150 ms QRS Dur : 080 ms QT Int : 406 ms P-R-T Axes : 063 -06 026 degrees QTc Int : 453 ms NORMAL SINUS RHYTHM POSSIBLE LEFT ATRIAL ENLARGEMENT BORDERLINE ECG NO PREVIOUS ECGS AVAILABLE Confirmed by ERICA MEJÍA, RAN ([id number]) on 09/04/2018 10:57:11 AM Referred By: Confirmed By:RAN MALDONADO MD
--- NOTE | 2018-09-04 11:42 | PN ---
Physical Exam: SUBJECTIVE: Patient seen and examined. No acute events overnight. Pt. speaks Georgian and was interpeted by via phone. states that we can call him at any time for assistance translating, did not confirm with Pt. alone if this was acceptable to her. Pt. endorses increased pain on deep respiration. Pt. denies N/V/D/C. Pt. denies chest pain, abdominal pain or shortness of breath at this time. OBJECTIVE: Vital Signs Period Temp Pulse Resp BP Sys/Almodovar Pulse Ox Last 24 Hr 97.2 F-99.7 F 75-98 17-20 112-123/68-86 96-100 GENERAL: The patient is awake, alert, and fully oriented, in no acute distress. HEAD: Normal with no signs of trauma. EYES: PERRL, sclera anicteric, conjunctiva clear. No ptosis. ENT: Ears normal, nares patent, oropharynx clear without exudates, moist mucous membranes. NECK: Trachea midline, full range of motion, supple. LUNGS: Decreased breath sounds d/t pain, clear to auscultation bilaterally, no wheezes, no crackles, no accessory muscle use. HEART: Regular rate and rhythm, S1, S2 without murmur ABDOMEN: Soft, nontender, nondistended, normoactive bowel sounds, no guarding, no rebound- did not assess deep palpation EXTREMITIES: 2+ dorsal pedal pulses, warm, well-perfused, no edema. NEUROLOGICAL: Normal speech, gait not observed. PSYCH: Normal mood, normal affect. SKIN: Warm, dry, normal turgor, vertical surgical scar in abdomen. Laboratory Results - last 24 hr 09/03/18 09/03/18 09/03/18 16:44 16:53 16:53 WBC 17.2 H RBC 4.44 Hgb 13.2 Hct 41.4 MCV 93.2 MCH 29.7 MCHC 31.8 L RDW 14.5 Plt Count 246 MPV 8.7 Absolute Neuts (auto) 14.8 H Neutrophils % 86.2 H D Lymphocytes % 5.9 L D Monocytes % 7.3 Eosinophils % 0.3 D Basophils % 0.3 Nucleated RBC % 0 PT with INR 12.60 INR 1.07 PTT (Actin FS) Sodium Potassium Chloride Carbon Dioxide Anion Gap BUN Creatinine Creat Clearance w eGFR Random Glucose Calcium Phosphorus Magnesium Total Bilirubin Direct Bilirubin AST ALT Alkaline Phosphatase C-Reactive Protein Total Protein Albumin Triglycerides Cholesterol Total LDL Cholesterol HDL Cholesterol Total Amylase Lipase > 60342 H Beta HCG, Quant < 1.0 Urine Color Urine Appearance Urine pH Ur Specific [place] Urine Protein Urine Glucose (UA) Urine Ketones Urine Blood Urine Nitrite Urine Bilirubin Urine Urobilinogen Ur Leukocyte Esterase Urine WBC (Auto) Urine RBC (Auto) Ur Epithelial Cells Urine Mucus Urine HCG, Qual Blood Type Antibody Screen 09/03/18 09/03/18 09/03/18 16:53 16:53 21:04 WBC RBC Hgb Hct MCV MCH MCHC RDW Plt Count MPV Absolute Neuts (auto) Neutrophils % Lymphocytes % Monocytes % Eosinophils % Basophils % Nucleated RBC % PT with INR INR PTT (Actin FS) Sodium 139 Potassium 3.4 L Chloride 103 Carbon Dioxide 27 Anion Gap 9 BUN 9 Creatinine 0.7 Creat Clearance w eGFR > 60 Random Glucose 116 H Calcium 8.8 Phosphorus Magnesium Total Bilirubin 1.4 H Direct Bilirubin AST 55 H ALT 69 H Alkaline Phosphatase 189 H C-Reactive Protein Total Protein 7.8 Albumin 3.8 Triglycerides Cholesterol Total LDL Cholesterol HDL Cholesterol Total Amylase > 1300 H Lipase 34431 H Beta HCG, Quant Urine Color Dkyellow Urine Appearance Clear Urine pH 5.0 Ur Specific [place] 1.011 Urine Protein Negative Urine Glucose (UA) Negative Urine Ketones Negative Urine Blood 2+ H Urine Nitrite Negative Urine Bilirubin Negative Urine Urobilinogen 4.0 e.u/dl H Ur Leukocyte Esterase Trace Urine WBC (Auto) 4 Urine RBC (Auto) 14 Ur Epithelial Cells Rare Urine Mucus Rare Urine HCG, Qual Positive Blood Type Antibody Screen 09/04/18 09/04/18 09/04/18 06:30 06:30 06:30 WBC 11.3 H RBC 4.17 Hgb 12.2 Hct 38.5 MCV 92.3 MCH 29.2 MCHC 31.6 L RDW 14.1 Plt Count 226 MPV 8.9 Absolute Neuts (auto) 9.2 H Neutrophils % 81.6 Lymphocytes % 9.3 D Monocytes % 8.9 Eosinophils % 0.1 Basophils % 0.1 Nucleated RBC % 0 PT with INR 14.30 H INR 1.21 H PTT (Actin FS) 32.4 Sodium Potassium Chloride Carbon Dioxide Anion Gap BUN Creatinine Creat Clearance w eGFR Random Glucose Calcium Phosphorus Magnesium Total Bilirubin Direct Bilirubin AST ALT Alkaline Phosphatase C-Reactive Protein Total Protein Albumin Triglycerides Cholesterol Total LDL Cholesterol HDL Cholesterol Total Amylase Lipase 9958 H Beta HCG, Quant Urine Color Urine Appearance Urine pH Ur Specific [place] Urine Protein Urine Glucose (UA) Urine Ketones Urine Blood Urine Nitrite Urine Bilirubin Urine Urobilinogen Ur Leukocyte Esterase Urine WBC (Auto) Urine RBC (Auto) Ur Epithelial Cells Urine Mucus Urine HCG, Qual Blood Type Antibody Screen 09/04/18 09/04/18 09/04/18 06:30 06:30 06:30 WBC RBC Hgb Hct MCV MCH MCHC RDW Plt Count MPV Absolute Neuts (auto) Neutrophils % Lymphocytes % Monocytes % Eosinophils % Basophils % Nucleated RBC % PT with INR INR PTT (Actin FS) Sodium 138 Potassium 3.8 Chloride 104 Carbon Dioxide 25 Anion Gap 8 BUN 6 L Creatinine 0.6 Creat Clearance w eGFR > 60 Random Glucose 85 Calcium 8.7 Phosphorus 3.6 Magnesium 2.0 Total Bilirubin 0.6 Direct Bilirubin 0.2 AST 27 ALT 48 Alkaline Phosphatase 145 H C-Reactive Protein 5.7 H Total Protein 6.9 Albumin 3.3 L Triglycerides 70 Cholesterol 151 Total LDL Cholesterol 97 HDL Cholesterol 43 Total Amylase > 1300 H Lipase Beta HCG, Quant Urine Color Urine Appearance Urine pH Ur Specific [place] Urine Protein Urine Glucose (UA) Urine Ketones Urine Blood Urine Nitrite Urine Bilirubin Urine Urobilinogen Ur Leukocyte Esterase Urine WBC (Auto) Urine RBC (Auto) Ur Epithelial Cells Urine Mucus Urine HCG, Qual Blood Type Antibody Screen 09/04/18 06:30 WBC RBC Hgb Hct MCV MCH MCHC RDW Plt Count MPV Absolute Neuts (auto) Neutrophils % Lymphocytes % Monocytes % Eosinophils % Basophils % Nucleated RBC % PT with INR INR PTT (Actin FS) Sodium Potassium Chloride Carbon Dioxide Anion Gap BUN Creatinine Creat Clearance w eGFR Random Glucose Calcium Phosphorus Magnesium Total Bilirubin Direct Bilirubin AST ALT Alkaline Phosphatase C-Reactive Protein Total Protein Albumin Triglycerides Cholesterol Total LDL Cholesterol HDL Cholesterol Total Amylase Lipase Beta HCG, Quant Urine Color Urine Appearance Urine pH Ur Specific [place] Urine Protein Urine Glucose (UA) Urine Ketones Urine Blood Urine Nitrite Urine Bilirubin Urine Urobilinogen Ur Leukocyte Esterase Urine WBC (Auto) Urine RBC (Auto) Ur Epithelial Cells Urine Mucus Urine HCG, Qual Blood Type O POSITIVE Antibody Screen Negative Active Medications Current Medications Acetaminophen (Ofirmev Injection -) 1,000 mg IVPB Q6H PRN PRN Reason: Pain Level 4 - 10 Ampicillin Sodium/Sulbactam (Sodium 3 gm/ Sodium Chloride) 100 mls @ 200 mls/ hr IVPB Q8H-IV SANKET Last Admin: 09/04/18 09:57 Dose: 200 mls/hr Metronidazole (Flagyl 500mg Premixed Ivpb -) 500 mg in 100 mls @ 100 mls/hr IVPB Q8H-IV SANKET Last Admin: 09/04/18 11:18 Dose: 100 mls/hr Lactated Ringer's (Lactated Ringers Solution) 1,000 mls @ 150 mls/hr IV ASDIR SANKET Last Admin: 09/04/18 06:41 Dose: 150 mls/hr Morphine Sulfate (Morphine Sulfate) 2 mg IVPUSH Q4H PRN PRN Reason: Pain Level 7-10 BREAKTHROUGH Stop: 09/06/18 19:44 Last Admin: 09/04/18 09:58 Dose: 2 mg Ondansetron HCl (Zofran Injection) 4 mg IVPUSH Q6H PRN PRN Reason: NAUSEA Home Medications Medication Instructions Recorded Metoclopramide HCl [Reglan] 10 mg PO TID 09/03/18 Pnv No.95/Ferrous Fum/Folic AC 1 each PO DAILY 09/03/18 [ Multivitamin Tablet] MRCP: Abd US: inspissated bile sludge in gallbladder lumen, multiple non-obstructing stones seen in GB, CBD 0.5cm. ASSESSMENT/PLAN: A 28 y. o. Georgian speaking F returns to the ED with 2 days Hx. of abdominal pain and vomiting, admitted for pancreatitis 2/2 biliary sludge. #Gastroenterology -Acute abdominal pain 2/2 acute pancreatitis 2/2 inspissated biliary sludge Abdominal pain 7-910 , with 4 times vomiting on admission. No vomiting since f/u MRCP read Lipase 30,000-->18,735-->9,958, WBC 17k-->11.3k; c/w trend Bili 1.4 total, slightly elevated LFTs c/w NPO c/w IVF Pain control with morphine Q4H Surgery Consult (Dr. Licea) appreciated GI consult(Dr. Kenney) appreciated for possible ERCP, also recommend Pump and Dump for 1 month is taking medications contraindicated for breast feeding, and morphine should be used for breakthrough pain only. Non-narcotics (Tylenol) for pain should be used first. Bilirubin total and direct C/w Unasyn and Flagyl f/u BCx., UCx. UA- -Nausea-resolved c/w Zofran 4mg PRN failed outpatient management with Reglan #Infectious Disease -Bacteremia BCx. Positive for gram - bacilli c/w Unasyn #FEN -LR @ 150ml/hr -monitor electrolytes, replete if needed -NPO till ERCP #Ppx. DVT. -SCDs Visit type - Emergency Visit Emergency Visit: Yes ED Registration Date: 09/03/18 Care time: The patient presented to the Emergency Department on the above date and was hospitalized for further evaluation of their emergent condition. - New Patient This patient is new to me today: Yes Date on this admission: 09/04/18 - Critical Care Critical Care patient: No - Discharge Referral Referred to [facility] Med P.C.: No
--- NOTE | 2018-09-04 11:54 | CON.GI ---
Consult Consult Specialty:: Gastroenterology ( covering Dr Holman) Referred by:: Jennifer Franco MD Reason for Consultation:: Pancreatitis - History of Present Illness Chief Complaint: Abdominal pain History of Present Illness: 28F developed severe upper abdominal pain that radiates into her back and was associated with nausea and vomiting. The history was obtained using [employer] bill cutter Idis # [id number]. The patient is about 4 weeks and a C section. She was seen in the ER and discharged but had to return when the pancreatitis developed. She has gallstones. - History Source History Provided By: Patient Limitations to Obtaining History: Language Barrier - Past Medical History Hepatobiliary: Yes: Cholelithiasis ...: No (1 month ) - Past Surgical History Past Surgical History: Yes: (08/01/18) - Alcohol/Substance Use Hx Alcohol Use: No History of Substance Use: reports: None - Smoking History Smoking history: Never smoked Have you smoked in the past 12 months: No - Social History Usual Living Arrangement: With Spouse ADL: Independent Occupation: not employed Place of : Other (born in [facility] [place]. came to [facility] age 25) History of Recent Travel: No Home Medications - Allergies Allergies/Adverse Reactions: Allergies Allergy/AdvReac Type Severity Reaction Status Date / Time No Known Allergies Allergy Verified 09/03/18 16:22 - Home Medications Home Medications: Ambulatory Orders Metoclopramide HCl [Reglan] 10 mg PO TID 09/03/18 Pnv No.95/Ferrous Fum/Folic AC [ Multivitamin Tablet] 1 each PO DAILY Family Disease History - Family Disease History Family Disease History: Diabetes: Father Other Family History: cousin had gallbladder out. GM had vaginal cancer Review of Systems - Review of Systems Constitutional: reports: No Symptoms Eyes: reports: No Symptoms HENT: reports: No Symptoms Neck: reports: No Symptoms Cardiovascular: reports: No Symptoms Respiratory: reports: No Symptoms Gastrointestinal: reports: Abdominal Pain, Vomiting Musculoskeletal: reports: No Symptoms Physical Exam-GI Vital Signs: Vital Signs Temperature 99.4 F 09/04/18 08:50 Pulse Rate 88 09/04/18 08:50 Respiratory Rate 19 09/04/18 08:50 Blood Pressure 123/75 09/04/18 08:50 O2 Sat by Pulse Oximetry (%) 100 09/03/18 22:36 CBC,CMP WBC 11.3 K/mm3 (4.0-10.0) H 09/04/18 06:30 RBC 4.17 M/mm3 (3.60-5.2) 09/04/18 06:30 Hgb 12.2 GM/dL (10.7-15.3) 09/04/18 06:30 Hct 38.5 % (32.4-45.2) 09/04/18 06:30 MCV 92.3 fl (80-96) 09/04/18 06:30 MCH 29.2 pg (25.7-33.7) 09/04/18 06:30 MCHC 31.6 g/dl (32.0-36.0) L 09/04/18 06:30 RDW 14.1 % (11.6-15.6) 09/04/18 06:30 Plt Count 226 K/MM3 (134-434) 09/04/18 06:30 MPV 8.9 fl (7.5-11.1) 09/04/18 06:30 Absolute Neuts (auto) 9.2 K/mm3 (1.5-8.0) H 09/04/18 06:30 Neutrophils % 81.6 % (42.8-82.8) 09/04/18 06:30 Lymphocytes % 9.3 % (8-40) D 09/04/18 06:30 Monocytes % 8.9 % (3.8-10.2) 09/04/18 06:30 Eosinophils % 0.1 % (0-4.5) 09/04/18 06:30 Basophils % 0.1 % (0-2.0) 09/04/18 06:30 Nucleated RBC % 0 % (0-0) 09/04/18 06:30 Sodium 138 mmol/L (136-145) 09/04/18 06:30 Potassium 3.8 mmol/L (3.5-5.1) 09/04/18 06:30 Chloride 104 mmol/L (98-107) 09/04/18 06:30 Carbon Dioxide 25 mmol/L (21-32) 09/04/18 06:30 Anion Gap 8 MMOL/L (8-16) 09/04/18 06:30 BUN 6 mg/dL (7-18) L 09/04/18 06:30 Creatinine 0.6 mg/dL (0.55-1.3) 09/04/18 06:30 Creat Clearance w eGFR > 60 (>60) 09/04/18 06:30 Random Glucose 85 mg/dL (74-106) 09/04/18 06:30 Calcium 8.7 mg/dL (8.5-10.1) 09/04/18 06:30 Phosphorus 3.6 mg/dL (2.5-4.9) 09/04/18 06:30 Magnesium 2.0 mg/dL (1.8-2.4) 09/04/18 06:30 Total Bilirubin 0.6 mg/dL (0.2-1) 09/04/18 06:30 Direct Bilirubin 0.2 mg/dL (0.0-0.2) 09/04/18 06:30 AST 27 U/L (15-37) 09/04/18 06:30 ALT 48 U/L (13-61) 09/04/18 06:30 Alkaline Phosphatase 145 U/L (45-117) H 09/04/18 06:30 C-Reactive Protein 5.7 MG/DL (0.00-0.3) H 09/04/18 06:30 Total Protein 6.9 g/dl (6.4-8.2) 09/04/18 06:30 Albumin 3.3 g/dl (3.4-5.0) L 09/04/18 06:30 Triglycerides 70 mg/dL (0-150) 09/04/18 06:30 Cholesterol 151 mg/dL (50-200) 09/04/18 06:30 Total LDL Cholesterol 97 mg/dL (5-100) 09/04/18 06:30 HDL Cholesterol 43 mg/dL (40-60) 09/04/18 06:30 Total Amylase > 1300 U/L (25-115) H 09/04/18 06:30 Lipase 9958 U/L (73-393) H 09/04/18 06:30 Beta HCG, Quant < 1.0 mIU/ml 09/03/18 16:44 Current Medications Generic Name Dose Route Start Last Admin Trade Name Freq PRN Reason Stop Dose Admin Acetaminophen 1,000 mg 09/03/18 21:31 Ofirmev Injection - IVPB Q6H PRN Pain Level 4 - 10 Ampicillin Sodium/Sulbactam 100 mls @ 200 mls/hr 09/03/18 19:15 09/04/18 09: 57 Sodium 3 gm/ Sodium Chloride IVPB 200 mls/hr Q8H-IV SANKET Administration Metronidazole 500 mg in 100 mls @ 100 mls/hr 09/03/18 19:15 09/04/18 11:18 Flagyl 500mg Premixed Ivpb - IVPB 100 mls/hr Q8H-IV SANKET Administration Lactated Ringer's 1,000 mls @ 150 mls/hr 09/03/18 19:45 09/04/18 06:41 Lactated Ringers Solution IV 150 mls/hr ASDIR SANKET Administration Morphine Sulfate 2 mg 09/03/18 21:32 09/04/18 09:58 Morphine Sulfate IVPUSH 09/06/18 19:44 2 mg Q4H PRN Administration Pain Level 7-10 BREAKTHROUGH Ondansetron HCl 4 mg 09/03/18 19:42 Zofran Injection IVPUSH Q6H PRN NAUSEA Constitutional: Yes: Well Nourished Eyes: Yes: Conjunctiva Clear HENT: Yes: Normocephalic Neck: Yes: Supple Cardiovascular: Yes: Regular Rate and Rhythm Respiratory: Yes: CTA Bilaterally Gastrointestinal Inspection: Yes: Scars (healed Pfannensteil incision) ...Auscultate: Yes: Hypoactive Bowel Sounds ...Palpate: Yes: Soft, Tenderness (epigastric tenderness but no peritoneal signs ) ...Rectal Exam: Yes: Deferred Labs: CBC, BMP 09/04/18 06:30 09/04/18 06:30 INR, PTT INR 1.21 (0.83-1.09) H 09/04/18 06:30 Imaging - Results MRI: Image Reviewed (the CBD appears clear but await radiology reading) Assessment/Plan I believe that Rai has biliary pancreatitis with a passed CBD stone given her LFTs pattern. Using the [employer] bill cutter I discussed the potential need for ERCP and sphincteormtomy to extract CBD stones. I have informed her of the potential for such complications as perforation, hemorrhage and pancreatitis leading to multiorgan failure and possible transfusions and emergent surgery. She has granted a verbal consent should ERCP prove necessary I have explained the need for cholecystectomy to prevent repeated biliary pancreatittis. cholangitis and cholecystitis. Dr Licea is already on the case. I will decrease her IV fluid rate Continue antibiotics Await MRCP
[2018-09-04] MEDS: ACETAMINOPHEN 1000 MG/100 ML VIAL (NON FORMULARY) IVPB PRN (17:58)
--- NOTE | 2018-09-04 19:01 | PN ---
Teaching Attending Note Name of Resident: Felix Troy ATTENDING PHYSICIAN STATEMENT I saw and evaluated the patient. I reviewed the resident's note and discussed the case with the resident. I agree with the resident's findings and plan as documented. SUBJECTIVE: No fever ro chills, feeels better this afternoon. still with some abd pain , no n/v . OBJECTIVE: NAD Cv : RRR Lungs: CTAB ext : evin mynor Abd: sfot, ND, TTP in RUQ. and epigastric area ASSESSMENT AND PLAN: 28 y/o lady with no significant PMH who presented with abd pain and was found to have acute pancreatitis and acute cholecystitis 1- Acute gall stone pancreatitis and cholecystitis . MRCP reviewed. Blood cx + G- organism - change Abx to zosyn and consult ID - repeat blood cx tomorrow - appreciate GI and sx input - timing of CCY - NPO - IVF and pain control HLOC
[2018-09-04] MEDS ORDERED: D5-1/2NS+20 MEQ KCL - 20 MEQ/1,000 ML INFUS.BAG IV SCH (19:15)
[2018-09-04] MEDS ORDERED: DEXTROSE 5%-WATER 100 ML IVPB ONE (19:40)
[2018-09-04] MEDS ORDERED: PIPERACILLIN/TAZOBACTAM 4.5 GM VIAL IVPB ONE (19:40)
[2018-09-04] MEDS: PIPERACILLIN/TAZOB 4.5 GM 4.5 GM in DEXTROSE 5%-WATER 100 ML IVPB SCH (19:54)
[2018-09-04] MEDS ORDERED: PIPERACILLIN/TAZOB 4.5 GM 4.5 GM in DEXTROSE 5%-WATER 100 ML IVPB SCH ×3 (21:00)
[2018-09-05] MEDS: ACETAMINOPHEN 1000 MG/100 ML VIAL (NON FORMULARY) IVPB PRN ×2 (00:26→14:33)
[2018-09-05] MEDS ORDERED: PIPERACILLIN/TAZOBACTAM 4.5 GM VIAL IVPB ONE ×4 (01:35→21:01)
[2018-09-05] MEDS ORDERED: DEXTROSE 5%-WATER 100 ML IVPB ONE ×4 (01:36→21:02)
[2018-09-05] MEDS: PIPERACILLIN/TAZOB 4.5 GM 4.5 GM in DEXTROSE 5%-WATER 100 ML IVPB SCH ×4 (01:39→21:09)
[2018-09-05] MEDS ORDERED: PIPERACILLIN/TAZOB 4.5 GM 4.5 GM in DEXTROSE 5%-WATER 100 ML IVPB SCH (02:00)
[2018-09-05 07:18] LABS: BASO % 0.6 % (0-2.0); EOS % 0.7 % (0-4.5); HEMATOCRIT 37.2 % (32.4-45.2); HEMOGLOBIN 11.7 GM/dL (10.7-15.3); LYMPH % 6.7 % (8-40); MCHC 31.5 g/dl (32.0-36.0); MEAN CELL VOLUME 91.9 fl (80-96); MEAN PLT VOLUME 8.5 fl (7.5-11.1); MONO % 8.9 % (3.8-10.2); NEUT % 83.1 % (42.8-82.8); PLATELET COUNT 211 K/MM3 (134-434); RBC 4.05 M/mm3 (3.60-5.2); RDW 14.4 % (11.6-15.6); WHITE BLOOD COUNT 15.6 K/mm3 (4.0-10.0)
[2018-09-05 08:03] LABS: ALK PHOS 117 U/L (45-117); ANION GAP 9 MMOL/L (8-16); BILIRUBIN,TOTAL 0.7 mg/dL (0.2-1); BLOOD UREA NITROGEN 4 mg/dL (7-18); CALCIUM 8.4 mg/dL (8.5-10.1); CHLORIDE 103 mmol/L (98-107); CO2 26 mmol/L (21-32); CREATININE 0.5 mg/dL (0.55-1.3); GLUCOSE,RANDOM 102 mg/dL (74-106); MAGNESIUM 1.9 mg/dL (1.8-2.4); PHOSPHOROUS 3.2 mg/dL (2.5-4.9); POTASSIUM 3.7 mmol/L (3.5-5.1); SGOT/AST 16 U/L (15-37); SGPT/ALT 33 U/L (13-61); SODIUM 138 mmol/L (136-145); TOT PROT 6.5 g/dl (6.4-8.2)
--- NOTE | 2018-09-05 09:23 | PN ---
GI Progress Note Subjective: Describes more abdominal pain today No acute events overnight - Objective Vital Signs: Vital Signs Temperature 99.3 F 09/05/18 06:00 Pulse Rate 98 H 09/05/18 06:00 Respiratory Rate 20 09/05/18 06:00 Blood Pressure 109/69 09/05/18 06:00 O2 Sat by Pulse Oximetry (%) 100 09/04/18 21:00 Constitutional: Calm Eyes: No: Sclera Icterus Cardiovascular: Yes: Tachycardia. No: Murmur Respiratory: Yes: CTA Bilaterally Gastrointestinal Inspection: No: Distention ...Auscultate: Yes: Normoactive Bowel Sounds ...Palpate: Yes: Tenderness (TTP mid abdomen, LUQ/LLQ) ...Percussion: No: Tympanitic Edema: No (No LE edema) Neurological: Yes: Alert Labs: CBC, BMP 09/05/18 06:30 09/05/18 06:30 INR, PTT INR 1.21 (0.83-1.09) H 09/04/18 06:30 - ....Imaging MRI: Report Reviewed Problem List - Problems (1) Acute biliary pancreatitis without infection or necrosis Assessment/Plan: Suspected gallstone pancreatitis. Patient still with significant abdominal pain on exam and tachycardic this morning. I have change fluids from maintenance 1/ 2 NS to LR @ 200cc/hr for 1 liter followed by 150cc/hr NPO If continued worsening of pain and rising WBC's, will likely need repeat contrast imaging to assess for development of peripancreatic fluid collection Daily labs Code(s): K85.10 - BILIARY ACUTE PANCREATITIS WITHOUT NECROSIS OR INFECTION
[2018-09-05] MEDS ORDERED: LACTATED RINGERS SOLUTION 1,000 ML/1,000 ML INFUS.BAG IV SCH ×2 (09:30)
--- NOTE | 2018-09-05 09:54 | CON.ID ---
Consult Consult Specialty:: infectious diseases Referred by:: Reason for Consultation:: bacteremia - History of Present Illness Chief Complaint: abd pain History of Present Illness: 28F with severe upper abdominal pain that radiates into her back which was associated with nausea and vomiting. patient is post about 4 weeks she had a uncomplicated c section patient initially came to the emergency room it seems and was discharged but came back because she was having abd pain and was found to have pancreatitis patient was worked in up and found to have gall stones,severe pancreatitis and also was found to have positive blood cx continues to have abd pain ,clinically patient looks stable her lipase has decreased but her wbc has increased and also patient is spiking fevers patient started on abx - History Source History Provided By: Medical Record Limitations to Obtaining History: Language Barrier - Past Medical History Hepatobiliary: Yes: Cholelithiasis ...: No (1 month ) - Past Surgical History Past Surgical History: Yes: (08/01/18) - Alcohol/Substance Use Hx Alcohol Use: No History of Substance Use: reports: None - Smoking History Smoking history: Never smoked Have you smoked in the past 12 months: No - Social History Usual Living Arrangement: With Spouse ADL: Independent Occupation: not employed History of Recent Travel: No Home Medications - Allergies Allergies/Adverse Reactions: Allergies Allergy/AdvReac Type Severity Reaction Status Date / Time No Known Allergies Allergy Verified 09/03/18 16:22 - Home Medications Home Medications: Ambulatory Orders Metoclopramide HCl [Reglan] 10 mg PO TID 09/03/18 Pnv No.95/Ferrous Fum/Folic AC [ Multivitamin Tablet] 1 each PO DAILY Family Disease History - Family Disease History Family Disease History: Diabetes: Father Other Family History: cousin had gallbladder out. GM had vaginal cancer Review of Systems - Review of Systems Constitutional: reports: Fever Eyes: reports: No Symptoms HENT: reports: No Symptoms Neck: reports: No Symptoms Cardiovascular: reports: No Symptoms Respiratory: reports: No Symptoms Gastrointestinal: reports: Abdominal Pain Genitourinary: reports: No Symptoms Musculoskeletal: reports: No Symptoms Integumentary: reports: No Symptoms Neurological: reports: No Symptoms Endocrine: reports: No Symptoms Hematology/Lymphatic: reports: No Symptoms Psychiatric: reports: No Symptoms Physical Exam Vital Signs: Vital Signs Temperature 99.3 F 09/05/18 06:00 Pulse Rate 98 H 09/05/18 06:00 Respiratory Rate 20 09/05/18 06:00 Blood Pressure 109/69 09/05/18 06:00 O2 Sat by Pulse Oximetry (%) 100 09/04/18 21:00 Constitutional: Yes: Well Nourished, Moderate Distress Eyes: Yes: Conjunctiva Clear HENT: Yes: Atraumatic, Normocephalic Neck: Yes: Supple, Trachea Midline Cardiovascular: Yes: Regular Rate and Rhythm Respiratory: Yes: Regular, CTA Bilaterally Gastrointestinal: Yes: Hypoactive Bowel Sounds, Tenderness (ruq), Other Musculoskeletal: Yes: WNL Extremities: Yes: WNL Neurological: Yes: Alert, Oriented Psychiatric: Yes: Alert, Oriented Labs: CBC, BMP 09/05/18 06:30 09/05/18 06:30 Imaging - Results Ultrasound: Report Reviewed, Image Reviewed MRI: Report Reviewed, Image Reviewed Assessment/Plan Problem List - Problems (1) Acute biliary pancreatitis without infection or necrosis Code(s): K85.10 - BILIARY ACUTE PANCREATITIS WITHOUT NECROSIS OR INFECTION (2) Calculus of gallbladder and bile duct w/o cholecystitis or obstruction Code(s): K80.70 - CALCULUS OF GB AND BILE DUCT W/O CHOLECYST W/O OBSTRUCTION (3) Disease of digestive system complicating puerperium Code(s): O99.63 - DISEASES OF THE DIGESTIVE SYSTEM COMPLICATING THE PUERPERIUM (4) Epigastric abdominal pain Code(s): R10.13 - EPIGASTRIC PAIN (5) Nausea and vomiting Code(s): R11.2 - NAUSEA WITH VOMITING, UNSPECIFIED Qualifiers: Vomiting type: unspecified Vomiting Intractability: non-intractable Qualified Code(s): R11.2 - Nausea with vomiting, unspecified fever leukocytosis gm negative bacteremia after looking at the patient i am worried the direction patient is going to take. patient has been started on abx . patient needs to be closely watched plan continue abx if wbc increases tomorrow will change abx to imipenam if patient spikes high grade fever then patient will need imagining studies rest continue current mgmt hydration close watch on the patient
[2018-09-05 10:06] LABS: ACANTHOCYTES 0; ANISOCYTOSIS 0; HELMET CELLS 0; HOWELL-JOLLY BODIES 0; MACROCYTOSIS 0; OVALOCYTE 0; PLATELET ESTIMATE NORMAL; ROULEAU 0; SICKELED CELLS 0; TARGET CELLS 0; TEAR DROP CELLS 0; TOXIC GRANULATION 0
--- NOTE | 2018-09-05 12:43 | PN ---
Teaching Attending Note Name of Resident: Felix Troy ATTENDING PHYSICIAN STATEMENT I saw and evaluated the patient. I reviewed the resident's note and discussed the case with the resident. I agree with the resident's findings and plan as documented. SUBJECTIVE: fever last night . she feels better , abd pain is better. no N/V. reported one episode of hematuria yesterday, no recurrence today. No SOB , but when abd pain is worse she has difficulty breathing. has no cough . OBJECTIVE: NAD, awake , and alert Cv: RRR, no mRG Lungs: CTAB. with decreased breath sounds at bases ext: no edema Abd: soft ND, TTP in RUQ and epigastric area. ASSESSMENT AND PLAN: 28 y/o lady with no significant PMH who presented with abd pain and was found to have acute pancreatitis and acute cholecystitis 1- Acute gall stone pancreatitis and cholecystitis . Now with fever and G - bacteremia - follow identification of organism - cont zosyn - repeat blood cx . monitor leukocytosis - cont NPO - if cont to spike fever, will repeat CT w/c to r/o necrosis/collection - D/w Dr. Licea. no ccy yet . - D/w Dr. Rosales. OC
[2018-09-05] MEDS: MORPHINE SULFATE 2 MG/ML VIAL IVPUSH PRN (14:11)
[2018-09-05] MEDS: LACTATED RINGERS SOLUTION 1,000 ML/1,000 ML INFUS.BAG IV SCH ×2 (14:14→17:20)
[2018-09-05 15:19] LABS: LIPASE 1487 U/L (73-393)
--- NOTE | 2018-09-05 15:25 | PN ---
Physical Exam: SUBJECTIVE: Patient seen and examined. Pt. got temperature to 101.4. Pt. given Tylenol and continued with Unasyn. Pt. had a bloody episode of urination overnight which resolved spontaneously. Questionable if Pt. had hematuria vs. vaginal bleeding. Vaginal exam was performed by nurses overnight and there was no bleeding identified in vaginal canal. There was no repeat episodes of blood in urine noted. Pt. endorses feeling better today. OBJECTIVE: Vital Signs Period Temp Pulse Resp BP Sys/Almodovar Pulse Ox Last 24 Hr 98.7 F-101.4 F 98-115 19-20 109-114/56-78 100 GENERAL: The patient is awake, alert, and fully oriented, in no acute distress. EYES: sclera anicteric, conjunctiva clear. No ptosis. ENT: Ears normal, nares patent, oropharynx clear without exudates, moist mucous membranes. NECK: Trachea midline, full range of motion, supple. LUNGS: Decreased breath sounds in posterior axilla, clear to auscultation bilaterally, no wheezes, no crackles, no accessory muscle use. HEART: Tachycardic, regular rate and rhythm, S1, S2 without murmur ABDOMEN: Soft, mild tenderness to palpation in epigastrium, nondistended, normoactive bowel sounds EXTREMITIES: 2+ dorsal pedal pulses, warm, well-perfused, clubbed toes, no edema. NEUROLOGICAL: Normal speech, gait not observed. PSYCH: Normal mood, normal affect. SKIN: Warm, dry, normal turgor, vertical surgical scar in abdomen. Laboratory Results - last 24 hr 09/05/18 09/05/18 06:30 06:30 WBC 15.6 H RBC 4.05 Hgb 11.7 Hct 37.2 MCV 91.9 MCH 29.0 MCHC 31.5 L RDW 14.4 Plt Count 211 MPV 8.5 Absolute Neuts (auto) 12.9 H Neutrophils % 83.1 H Neutrophils % (Manual) 76.8 Band Neutrophils % 3.0 Lymphocytes % 6.7 L D Lymphocytes % (Manual) 7.1 L Monocytes % 8.9 Monocytes % (Manual) 10 Eosinophils % 0.7 D Eosinophils % (Manual) 0.0 Basophils % 0.6 D Basophils % (Manual) 1.0 Myelocytes % (Man) 0 Promyelocytes % (Man) 0 Blast Cells % (Manual) 0 Nucleated RBC % 0 Metamyelocytes 0 Hypochromia 0 Toxic Granulation 0 Dohle Bodies 0 Platelet Estimate Normal Polychromasia 0 Poikilocytosis 0 Basophilic Stippling 0 Anisocytosis 0 Microcytosis 0 Macrocytosis 0 Spherocytes 0 Sickle Cells 0 Target Cells 0 Tear Drop Cells 0 Ovalocytes 0 Stomatocytes 0 Helmet Cells 0 Ma-[place] Bodies 0 [place] Rings 0 [place] Cells 0 Acanthocytes (Spur) 0 Rouleaux 0 Fragmented RBCs 0 Schistocytes 0 Sodium 138 Potassium 3.7 Chloride 103 Carbon Dioxide 26 Anion Gap 9 BUN 4 L Creatinine 0.5 L Creat Clearance w eGFR > 60 Random Glucose 102 Calcium 8.4 L Phosphorus 3.2 Magnesium 1.9 Total Bilirubin 0.7 AST 16 ALT 33 Alkaline Phosphatase 117 Total Protein 6.5 Albumin 3.0 L Lipase 1487 H Active Medications Current Medications Acetaminophen (Ofirmev Injection -) 1,000 mg IVPB Q6H PRN PRN Reason: Pain Level 4 - 10 Last Admin: 09/05/18 14:33 Dose: 1,000 mg Piperacillin Sod/Tazobactam (Sod 4.5 gm/ Dextrose) 100 mls @ 200 mls/hr IVPB Q6H-IV SANKET Last Admin: 09/05/18 14:15 Dose: 200 mls/hr Lactated Ringer's (Lactated Ringers Solution) 1,000 ml in 1,000 mls @ 150 mls/ hr IV ASDIR SANKET Last Admin: 09/05/18 14:14 Dose: Not Given Morphine Sulfate (Morphine Sulfate) 2 mg IVPUSH Q4H PRN PRN Reason: Pain Level 7-10 BREAKTHROUGH Stop: 09/06/18 19:44 Last Admin: 09/05/18 14:11 Dose: 2 mg Ondansetron HCl (Zofran Injection) 4 mg IVPUSH Q6H PRN PRN Reason: NAUSEA Home Medications Medication Instructions Recorded Metoclopramide HCl [Reglan] 10 mg PO TID 09/03/18 Pnv No.95/Ferrous Fum/Folic AC 1 each PO DAILY 09/03/18 [ Multivitamin Tablet] ASSESSMENT/PLAN: A 28 y. o. [place] speaking F returns to the ED with 2 days Hx. of abdominal pain and vomiting, admitted for pancreatitis 2/2 biliary sludge. #Gastroenterology -Acute abdominal pain 2/2 acute pancreatitis 2/2 inspissated biliary sludge Abdominal pain 7-07/15 , with 4 times vomiting on admission. No vomiting since MRCP: Cholelithiasis w/ cholecystitis, irregular gallbladder dome w/ septations , cannot r/o gangrenous gallbladder, no stones in CBD, no pancreaticobiliary ductal dilatation Lipase 30,000-->18,735-->9,958-->1,[address] Navas: will not trend, as not clinically relevant, WBC 17k-->11.3k; c/w trend c/w trending CMPs Q12H for LFTs, LFTs trending down indicating passed stone. If LFTs rise suddenly CALL Surgery, as this is medical emergency. Per Surgery, will wait until Gallbladder cools down, with CCY tentatively planned for Sunday. c/w NPO c/w IVF Pain control with morphine Q4H GI consult(Dr. Holman) appreciated, if pain or WBCs continue to rise, would reccommend imaging w/ contrast Bilirubin total and direct D/c-ed Unasyn, started Zosyn BCx: Gram - bacilli f/u Rpt. BCx. UA- , f/u UA -Nausea-resolved c/w Zofran 4mg PRN failed outpatient management with Reglan #Infectious Disease -Bacteremia BCx. Positive for gram - bacilli f/u repeat BCx.s D/c-ed Unasyn, started Zosyn #FEN -LR @ 150ml/hr after completing 1L of LR @ 200ml/hr -monitor electrolytes, replete if needed -NPO #Ppx. DVT. -SCDs Visit type - Emergency Visit Emergency Visit: Yes ED Registration Date: 09/03/18 Care time: The patient presented to the Emergency Department on the above date and was hospitalized for further evaluation of their emergent condition. - New Patient This patient is new to me today: No - Critical Care Critical Care patient: No - Discharge Referral Referred to [facility] Med P.C.: No
--- NOTE | 2018-09-05 16:19 | PN ---
Progress Note, Physician History of Present Illness: 28yo [place] F, 1 month from uncomplicated 1 week past due date, with gallstone pancreatitis and bacteremia with LF GNR. Feeling better , pain less, but still with some pain epigastric and LUQ. Hungry, no nausea. Fever today, T 101. On Zosyn per ID. - Current Medication List Current Medications: Active Medications Acetaminophen (Ofirmev Injection -) 1,000 mg IVPB Q6H PRN PRN Reason: Pain Level 4 - 10 Last Admin: 09/05/18 14:33 Dose: 1,000 mg Piperacillin Sod/Tazobactam (Sod 4.5 gm/ Dextrose) 100 mls @ 200 mls/hr IVPB Q6H-IV SANKET Last Admin: 09/05/18 14:15 Dose: 200 mls/hr Lactated Ringer's (Lactated Ringers Solution) 1,000 ml in 1,000 mls @ 150 mls/ hr IV ASDIR SANKET Last Admin: 09/05/18 14:14 Dose: Not Given Morphine Sulfate (Morphine Sulfate) 2 mg IVPUSH Q4H PRN PRN Reason: Pain Level 7-10 BREAKTHROUGH Stop: 09/06/18 19:44 Last Admin: 09/05/18 14:11 Dose: 2 mg Ondansetron HCl (Zofran Injection) 4 mg IVPUSH Q6H PRN PRN Reason: NAUSEA - Objective Vital Signs: Vital Signs Temperature 101.0 F H 09/05/18 14:36 Pulse Rate 103 H 09/05/18 14:36 Respiratory Rate 20 09/05/18 14:36 Blood Pressure 114/73 09/05/18 14:36 O2 Sat by Pulse Oximetry (%) 100 09/04/18 21:00 Vital Signs Period Temp Pulse Resp BP Sys/Almodovar Pulse Ox Last 24 Hr 98.7 F-101.4 F 98-115 19-20 109-114/56-78 100 Constitutional: Yes: Well Nourished, No Distress, Calm Eyes: Yes: Conjunctiva Clear, EOM Intact. No: Sclera Icterus HENT: Yes: Atraumatic, Normocephalic Gastrointestinal: Yes: Soft, Tenderness (LUQ no rebound or guarding), Tenderness , Epigastrium (less than yesterday) Musculoskeletal: No: Joint Stiffness, Joint Swelling Extremities: No: Cool, Cyanosis Integumentary: No: Jaundice, Rash Neurological: Yes: Alert, Oriented Labs: CBC, BMP 09/05/18 06:30 09/05/18 06:30 INR, PTT INR 1.21 (0.83-1.09) H 09/04/18 06:30 CMP Sodium 138 mmol/L (136-145) 09/05/18 06:30 Potassium 3.7 mmol/L (3.5-5.1) 09/05/18 06:30 Chloride 103 mmol/L (98-107) 09/05/18 06:30 Carbon Dioxide 26 mmol/L (21-32) 09/05/18 06:30 Anion Gap 9 MMOL/L (8-16) 09/05/18 06:30 BUN 4 mg/dL (7-18) L 09/05/18 06:30 Creatinine 0.5 mg/dL (0.55-1.3) L 09/05/18 06:30 Creat Clearance w eGFR > 60 (>60) 09/05/18 06:30 Random Glucose 102 mg/dL (74-106) 09/05/18 06:30 Calcium 8.4 mg/dL (8.5-10.1) L 09/05/18 06:30 Phosphorus 3.2 mg/dL (2.5-4.9) 09/05/18 06:30 Magnesium 1.9 mg/dL (1.8-2.4) 09/05/18 06:30 Total Bilirubin 0.7 mg/dL (0.2-1) 09/05/18 06:30 AST 16 U/L (15-37) 09/05/18 06:30 ALT 33 U/L (13-61) 09/05/18 06:30 Alkaline Phosphatase 117 U/L (45-117) 09/05/18 06:30 C-Reactive Protein 5.7 MG/DL (0.00-0.3) H 09/04/18 06:30 Total Protein 6.5 g/dl (6.4-8.2) 09/05/18 06:30 Albumin 3.0 g/dl (3.4-5.0) L 09/05/18 06:30 Triglycerides 70 mg/dL (0-150) 09/04/18 06:30 Cholesterol 151 mg/dL (50-200) 09/04/18 06:30 Total LDL Cholesterol 97 mg/dL (5-100) 09/04/18 06:30 HDL Cholesterol 43 mg/dL (40-60) 09/04/18 06:30 Lipase 1487 U/L (73-393) H 09/05/18 06:30 Beta HCG, Quant < 1.0 mIU/ml 09/03/18 16:44 Microbiology 09/03/18 16:53 Urine Culture - Final Urine - Urine Clean Catch NO GROWTH OBTAINED 09/04/18 01:52 Blood Culture - Preliminary Blood - Peripheral Venous Lactose Fermenting Neg Bacilli 09/04/18 01:52 Blood Culture - Preliminary Blood - Peripheral Venous NO GROWTH OBTAINED AFTER 24 HOURS, INCUBATION TO CONTINUE FOR 4 DAYS. lipase trending down quickly LFTs normal today wbc sideways - ....Imaging MRI: Report Reviewed, Image Reviewed (images reviewed - distended gallbladder, no filling defects in cbd, multiple small stones in gb neck, significant peripancreatic inflammation and pancreatic edema) Problem List - Problems (1) Acute biliary pancreatitis without infection or necrosis Assessment/Plan: admitted to medicine NPO until pain/tenderness resolve, may consider ice chips sparingly generous IV hydration MRCP reviewed - no clear CBD stones and LFTs down, lipase decreasing, so probably passed stone(s) GI consultation noted trend labs including lipase bacteremia with LF GNR on Zosyn per ID pain meds prn - nonnarcotics first line, morphine breakthrough only will cool down and treat positive blood cultures will check with ID on when to repeat if improving over weekend, may be able to consider lap possible open cholecystectomy Sunday discussed with Dr. Navas Code(s): K85.10 - BILIARY ACUTE PANCREATITIS WITHOUT NECROSIS OR INFECTION (2) Bacteremia due to Gram-negative bacteria Assessment/Plan: pending organism ID abx per ID Code(s): R78.81 - BACTEREMIA (3) Calculus of gallbladder and bile duct w/o cholecystitis or obstruction Code(s): K80.70 - CALCULUS OF GB AND BILE DUCT W/O CHOLECYST W/O OBSTRUCTION (4) Disease of digestive system complicating puerperium Assessment/Plan: 1 month - will need to pump & dump until 48 hours after last contraindicated medication intake Code(s): O99.63 - DISEASES OF THE DIGESTIVE SYSTEM COMPLICATING THE PUERPERIUM (5) Epigastric abdominal pain Code(s): R10.13 - EPIGASTRIC PAIN (6) Nausea and vomiting Code(s): R11.2 - NAUSEA WITH VOMITING, UNSPECIFIED Qualifiers: Vomiting type: unspecified Vomiting Intractability: non-intractable Qualified Code(s): R11.2 - Nausea with vomiting, unspecified
[2018-09-06] MEDS ORDERED: DEXTROSE 5%-WATER 100 ML IVPB ONE ×3 (02:40→21:24)
[2018-09-06] MEDS ORDERED: PIPERACILLIN/TAZOBACTAM 4.5 GM VIAL IVPB ONE ×4 (02:40→21:24)
[2018-09-06] MEDS: PIPERACILLIN/TAZOB 4.5 GM 4.5 GM in DEXTROSE 5%-WATER 100 ML IVPB SCH ×4 (02:46→21:30)
[2018-09-06 09:01] LABS: BASO % 0.8 % (0-2.0); HEMATOCRIT 36.5 % (32.4-45.2); HEMOGLOBIN 11.5 GM/dL (10.7-15.3); LYMPH % 7.9 % (8-40); MCH 29.4 pg (25.7-33.7); MCHC 31.7 g/dl (32.0-36.0); MEAN CELL VOLUME 92.7 fl (80-96); MEAN PLT VOLUME 9.3 fl (7.5-11.1); MONO % 9.5 % (3.8-10.2); NEUT % 80.8 % (42.8-82.8); PLATELET COUNT 235 K/MM3 (134-434); RBC 3.93 M/mm3 (3.60-5.2); RDW 14.3 % (11.6-15.6); WHITE BLOOD COUNT 14.2 K/mm3 (4.0-10.0)
[2018-09-06 09:12] LABS: ALBUMIN 2.8 g/dl (3.4-5.0); ALK PHOS 108 U/L (45-117); ANION GAP 10 MMOL/L (8-16); BILIRUBIN,TOTAL 0.6 mg/dL (0.2-1); BLOOD UREA NITROGEN 4 mg/dL (7-18); CALCIUM 8.2 mg/dL (8.5-10.1); CHLORIDE 105 mmol/L (98-107); CO2 24 mmol/L (21-32); CREATININE 0.5 mg/dL (0.55-1.3); GLUCOSE,RANDOM 67 mg/dL (74-106); MAGNESIUM 1.9 mg/dL (1.8-2.4); PHOSPHOROUS 3.4 mg/dL (2.5-4.9); POTASSIUM 3.6 mmol/L (3.5-5.1); SGOT/AST 16 U/L (15-37); SGPT/ALT 24 U/L (13-61); SODIUM 139 mmol/L (136-145); TOT PROT 6.4 g/dl (6.4-8.2)
--- NOTE | 2018-09-06 10:26 | PN ---
GI Progress Note Subjective: States feeling better Low grade temps noted - Objective Vital Signs: Vital Signs Temperature 100.3 F H 09/06/18 06:26 Pulse Rate 101 H 09/06/18 06:26 Respiratory Rate 20 09/06/18 06:26 Blood Pressure 111/68 09/06/18 06:26 O2 Sat by Pulse Oximetry (%) 98 09/05/18 21:00 Constitutional: Calm Eyes: No: Sclera Icterus Cardiovascular: Yes: Regular Rate and Rhythm Respiratory: Yes: CTA Bilaterally Gastrointestinal Inspection: No: Distention ...Auscultate: Yes: No Bowel Sounds ...Palpate: Yes: Tenderness (Much improved TTP in the upper abdomen and left abdomen) ...Percussion: No: Tympanitic Edema: No (No LE edema) Neurological: Yes: Alert (, awake) Labs: CBC, BMP 09/06/18 06:50 09/06/18 06:50 INR, PTT INR 1.21 (0.83-1.09) H 09/04/18 06:30 Laboratory Tests 09/04/18 09/06/18 06:30 06:50 C-Reactive Protein 5.7 H 18.5 H Problem List - Problems (1) Acute biliary pancreatitis without infection or necrosis Assessment/Plan: Clinically much improved from yesterday Continue IV hydration. Clears if OK with surgery Klebsiella bacteremia being treated. ID following Timing of cholecystectomy per surgery AM labs Code(s): K85.10 - BILIARY ACUTE PANCREATITIS WITHOUT NECROSIS OR INFECTION
--- NOTE | 2018-09-06 10:41 | PN ---
Physical Exam: SUBJECTIVE: Patient seen and examined. Pt. states decreased abdominal pain from yesterday. Pt. denies any more blood in urine. OBJECTIVE: Vital Signs Period Temp Pulse Resp BP Sys/Almodovar Pulse Ox Last 24 Hr 99.7 F-101.0 F 82-107 18-20 103-128/61-74 98 GENERAL: The patient is awake, alert, in no acute distress. EYES: sclera anicteric, conjunctiva clear. No ptosis. ENT: Ears normal, nares patent, oropharynx clear without exudates, moist mucous membranes. NECK: Trachea midline, full range of motion, supple. LUNGS: Breath sounds equal, clear to auscultation bilaterally, no wheezes, no crackles, no accessory muscle use. HEART: Regular rate and rhythm, S1, S2 without murmur, rub or gallop. ABDOMEN: Soft, nontender, nondistended, normoactive bowel sounds, no guarding, no rebound, tympanic to percussion. EXTREMITIES: 2+ dorsal pedal pulses, warm, no calf tenderness, well-perfused, trace edema. NEUROLOGICAL: Normal speech, gait not observed. PSYCH: Normal mood, normal affect. SKIN: Warm, dry, normal turgor Laboratory Results - last 24 hr 09/05/18 09/05/18 09/06/18 06:30 06:30 06:50 WBC RBC Hgb Hct MCV MCH MCHC RDW Plt Count MPV Absolute Neuts (auto) Neutrophils % Neutrophils % (Manual) 76.8 Band Neutrophils % 3.0 Lymphocytes % Lymphocytes % (Manual) 7.1 L Monocytes % Monocytes % (Manual) 10 Eosinophils % Eosinophils % (Manual) 0.0 Basophils % Basophils % (Manual) 1.0 Myelocytes % (Man) 0 Promyelocytes % (Man) 0 Blast Cells % (Manual) 0 Nucleated RBC % Metamyelocytes 0 Hypochromia 0 Toxic Granulation 0 Dohle Bodies 0 Platelet Estimate Normal Polychromasia 0 Poikilocytosis 0 Basophilic Stippling 0 Anisocytosis 0 Microcytosis 0 Macrocytosis 0 Spherocytes 0 Sickle Cells 0 Target Cells 0 Tear Drop Cells 0 Ovalocytes 0 Stomatocytes 0 Helmet Cells 0 Ma-[place] Bodies 0 [place] Rings 0 [place]da Cells 0 Acanthocytes (Spur) 0 Rouleaux 0 Fragmented RBCs 0 Schistocytes 0 Sodium 138 139 Potassium 3.7 3.6 Chloride 103 105 Carbon Dioxide 26 24 Anion Gap 9 10 BUN 4 L 4 L Creatinine 0.5 L 0.5 L Creat Clearance w eGFR > 60 > 60 Random Glucose 102 67 L Calcium 8.4 L 8.2 L Phosphorus 3.2 3.4 Magnesium 1.9 1.9 Total Bilirubin 0.7 0.6 AST 16 16 ALT 33 24 Alkaline Phosphatase 117 108 C-Reactive Protein 18.5 H Total Protein 6.5 6.4 Albumin 3.0 L 2.8 L Lipase 1487 H 09/06/18 09/06/18 06:50 06:50 WBC 14.2 H RBC 3.93 Hgb 11.5 Hct 36.5 MCV 92.7 MCH 29.4 MCHC 31.7 L RDW 14.3 Plt Count 235 MPV 9.3 Absolute Neuts (auto) 11.5 H Neutrophils % 80.8 Neutrophils % (Manual) Band Neutrophils % Lymphocytes % 7.9 L Lymphocytes % (Manual) Monocytes % 9.5 Monocytes % (Manual) Eosinophils % 1.0 Eosinophils % (Manual) Basophils % 0.8 Basophils % (Manual) Myelocytes % (Man) Promyelocytes % (Man) Blast Cells % (Manual) Nucleated RBC % 0 Metamyelocytes Hypochromia Toxic Granulation Dohle Bodies Platelet Estimate Polychromasia Poikilocytosis Basophilic Stippling Anisocytosis Microcytosis Macrocytosis Spherocytes Sickle Cells Target Cells Tear Drop Cells Ovalocytes Stomatocytes Helmet Cells Ma-[place] Bodies [place] Rings Magda Cells Acanthocytes (Spur) Rouleaux Fragmented RBCs Schistocytes Sodium Potassium Chloride Carbon Dioxide Anion Gap BUN Creatinine Creat Clearance w eGFR Random Glucose Calcium Phosphorus Magnesium Total Bilirubin AST ALT Alkaline Phosphatase C-Reactive Protein Total Protein Albumin Lipase 517 H Active Medications Current Medications Acetaminophen (Ofirmev Injection -) 1,000 mg IVPB Q6H PRN PRN Reason: Pain Level 4 - 10 Last Admin: 09/05/18 14:33 Dose: 1,000 mg Piperacillin Sod/Tazobactam (Sod 4.5 gm/ Dextrose) 100 mls @ 200 mls/hr IVPB Q6H-IV SANKET Last Admin: 09/06/18 09:03 Dose: 200 mls/hr Dextrose/Lactated Ringer's (D5-Lr -) 1,000 mls @ 150 mls/hr IV ASDIR SANKET Morphine Sulfate (Morphine Sulfate) 2 mg IVPUSH Q4H PRN PRN Reason: Pain Level 7-10 BREAKTHROUGH Stop: 09/06/18 19:44 Last Admin: 09/05/18 14:11 Dose: 2 mg Ondansetron HCl (Zofran Injection) 4 mg IVPUSH Q6H PRN PRN Reason: NAUSEA Home Medications Medication Instructions Recorded Metoclopramide HCl [Reglan] 10 mg PO TID 09/03/18 Pnv No.95/Ferrous Fum/Folic AC 1 each PO DAILY 09/03/18 [ Multivitamin Tablet] ASSESSMENT/PLAN: A 28 y. o. Slovenian speaking F with abdominal pain and vomiting, admitted for pancreatitis 2/2 biliary sludge. #Gastroenterology -Acute abdominal pain 2/2 acute pancreatitis 2/2 inspissated biliary sludge No vomiting since admission. MRCP: Cholelithiasis w/ cholecystitis, irregular gallbladder dome w/ septations , cannot r/o gangrenous gallbladder, no stones in CBD, no pancreaticobiliary ductal dilatation Lipase trending down, WBC trending down c/w trending CMPs Q12H for LFTs, LFTs trending down indicating passed stone. If LFTs rise suddenly CALL Surgery, as this is medical emergency. Per Surgery, will wait until Gallbladder cools down, with CCY tentatively planned for Sunday. c/w NPO c/w IVF Pain control with non-narcotics first line. GI consult(Dr. Holman) appreciated, if pain or WBCs continue to rise, would reccommend imaging w/ contrast Bilirubin unremarkable f/u Rpt. BCx. -Nausea-resolved c/w Zofran 4mg PRN #Infectious Disease -Bacteremia BCx. Positive for Klebsiella sensitive to Zosyn f/u repeat BCx.s c/w Zosyn #FEN -Switched to D5-LR @ 150ml/hr b/c Pt. is NPO and glucose was 67 -monitor electrolytes, replete if needed -NPO #Ppx. DVT. -SCDs -Early Ambulation Visit type - Emergency Visit Emergency Visit: Yes ED Registration Date: 09/03/18 Care time: The patient presented to the Emergency Department on the above date and was hospitalized for further evaluation of their emergent condition. - New Patient This patient is new to me today: No - Critical Care Critical Care patient: No - Discharge Referral Referred to [facility] Med P.C.: No
--- NOTE | 2018-09-06 13:15 | PN ---
Progress Note, Physician History of Present Illness: looking better feels better wbc trending down abd pain better - Current Medication List Current Medications: Active Medications Acetaminophen (Ofirmev Injection -) 1,000 mg IVPB Q6H PRN PRN Reason: Pain Level 4 - 10 Last Admin: 09/05/18 14:33 Dose: 1,000 mg Piperacillin Sod/Tazobactam (Sod 4.5 gm/ Dextrose) 100 mls @ 200 mls/hr IVPB Q6H-IV SANKET Last Admin: 09/06/18 09:03 Dose: 200 mls/hr Lactated Ringer's (Lactated Ringers Solution) 1,000 ml in 1,000 mls @ 150 mls/ hr IV ASDIR SANKET Last Admin: 09/05/18 17:20 Dose: 150 mls/hr Morphine Sulfate (Morphine Sulfate) 2 mg IVPUSH Q4H PRN PRN Reason: Pain Level 7-10 BREAKTHROUGH Stop: 09/06/18 19:44 Last Admin: 09/05/18 14:11 Dose: 2 mg Ondansetron HCl (Zofran Injection) 4 mg IVPUSH Q6H PRN PRN Reason: NAUSEA - Objective Vital Signs: Vital Signs Temperature 99.5 F 09/06/18 08:00 Pulse Rate 94 H 09/06/18 08:00 Respiratory Rate 20 09/06/18 09:00 Blood Pressure 121/64 09/06/18 08:00 O2 Sat by Pulse Oximetry (%) 98 09/06/18 09:00 Constitutional: Yes: Calm, Mild Distress Cardiovascular: Yes: Regular Rate and Rhythm Respiratory: Yes: Regular, CTA Bilaterally Gastrointestinal: Yes: Normal Bowel Sounds, Soft Musculoskeletal: Yes: WNL Extremities: Yes: WNL Neurological: Yes: Alert, Oriented Labs: CBC, BMP 09/06/18 06:50 09/06/18 06:50 INR, PTT INR 1.21 (0.83-1.09) H 09/04/18 06:30 Assessment/Plan Problem List - Problems (1) Acute biliary pancreatitis without infection or necrosis Code(s): K85.10 - BILIARY ACUTE PANCREATITIS WITHOUT NECROSIS OR INFECTION (2) Calculus of gallbladder and bile duct w/o cholecystitis or obstruction Code(s): K80.70 - CALCULUS OF GB AND BILE DUCT W/O CHOLECYST W/O OBSTRUCTION (3) Disease of digestive system complicating puerperium Code(s): O99.63 - DISEASES OF THE DIGESTIVE SYSTEM COMPLICATING THE PUERPERIUM (4) Epigastric abdominal pain Code(s): R10.13 - EPIGASTRIC PAIN (5) Nausea and vomiting Code(s): R11.2 - NAUSEA WITH VOMITING, UNSPECIFIED Qualifiers: Vomiting type: unspecified Vomiting Intractability: non-intractable Qualified Code(s): R11.2 - Nausea with vomiting, unspecified fever leukocytosis gm negative bacteremia plan continue abx monitor wbc monitor fevers rest as per the team
[2018-09-06] MEDS: LACTATED RINGERS SOLUTION 1,000 ML/1,000 ML INFUS.BAG IV SCH (14:00)
[2018-09-06] MEDS ORDERED: DEXTROSE 5%-LACTATED RINGERS 1,000 ML IV SCH ×2 (15:00→16:10)
--- NOTE | 2018-09-06 16:04 | PN ---
Progress Note, Physician History of Present Illness: 28yo [place] F, 1 month from uncomplicated 1 week past due date, with gallstone pancreatitis and bacteremia with Klebsiella, sensitive to Zosyn, which she is on per ID. Feeling better, no pain today. Thirsty. Using IS. Seen in room in bed, Dandy Elizalde assisted with Maltese, was on speakerphone. Repeat blood culture has no growth x24 hours to date. - Current Medication List Current Medications: Active Medications Acetaminophen (Ofirmev Injection -) 1,000 mg IVPB Q6H PRN PRN Reason: Pain Level 4 - 10 Last Admin: 09/05/18 14:33 Dose: 1,000 mg Piperacillin Sod/Tazobactam (Sod 4.5 gm/ Dextrose) 100 mls @ 200 mls/hr IVPB Q6H-IV SANKET Last Admin: 09/06/18 09:03 Dose: 200 mls/hr Dextrose/Lactated Ringer's (D5-Lr -) 1,000 mls @ 150 mls/hr IV ASDIR SANKET Morphine Sulfate (Morphine Sulfate) 2 mg IVPUSH Q4H PRN PRN Reason: Pain Level 7-10 BREAKTHROUGH Stop: 09/06/18 19:44 Last Admin: 09/05/18 14:11 Dose: 2 mg Ondansetron HCl (Zofran Injection) 4 mg IVPUSH Q6H PRN PRN Reason: NAUSEA - Objective Vital Signs: Vital Signs Temperature 98.9 F 09/06/18 13:52 Pulse Rate 87 09/06/18 13:52 Respiratory Rate 20 09/06/18 09:00 Blood Pressure 115/70 09/06/18 13:52 O2 Sat by Pulse Oximetry (%) 98 09/06/18 09:00 Vital Signs Period Temp Pulse Resp BP Sys/Almodovar Pulse Ox Last 24 Hr 98.9 F-100.5 F 82-107 18-20 103-128/61-74 98-98 temp curve down Constitutional: Yes: Well Nourished, No Distress, Calm Eyes: Yes: Conjunctiva Clear, EOM Intact. No: Sclera Icterus HENT: Yes: Atraumatic, Normocephalic Gastrointestinal: Yes: Soft, Tenderness (mild/minimal LLQ, no R/G). No: Distention, Tenderness, Epigastrium ...Rectal Exam: Yes: Deferred Musculoskeletal: No: Joint Stiffness, Joint Swelling Extremities: No: Cool, Cyanosis Integumentary: No: Jaundice, Rash Neurological: Yes: Alert, Oriented Labs: CBC, BMP 09/06/18 06:50 09/06/18 06:50 INR, PTT INR 1.21 (0.83-1.09) H 09/04/18 06:30 CMP Sodium 139 mmol/L (136-145) 09/06/18 06:50 Potassium 3.6 mmol/L (3.5-5.1) 09/06/18 06:50 Chloride 105 mmol/L (98-107) 09/06/18 06:50 Carbon Dioxide 24 mmol/L (21-32) 09/06/18 06:50 Anion Gap 10 MMOL/L (8-16) 09/06/18 06:50 BUN 4 mg/dL (7-18) L 09/06/18 06:50 Creatinine 0.5 mg/dL (0.55-1.3) L 09/06/18 06:50 Creat Clearance w eGFR > 60 (>60) 09/06/18 06:50 Random Glucose 67 mg/dL (74-106) L 09/06/18 06:50 Calcium 8.2 mg/dL (8.5-10.1) L 09/06/18 06:50 Phosphorus 3.4 mg/dL (2.5-4.9) 09/06/18 06:50 Magnesium 1.9 mg/dL (1.8-2.4) 09/06/18 06:50 Total Bilirubin 0.6 mg/dL (0.2-1) 09/06/18 06:50 Direct Bilirubin 0.2 mg/dL (0.0-0.2) 09/04/18 06:30 AST 16 U/L (15-37) 09/06/18 06:50 ALT 24 U/L (13-61) 09/06/18 06:50 Alkaline Phosphatase 108 U/L (45-117) 09/06/18 06:50 C-Reactive Protein 18.5 MG/DL (0.00-0.3) H 09/06/18 06:50 Total Protein 6.4 g/dl (6.4-8.2) 09/06/18 06:50 Albumin 2.8 g/dl (3.4-5.0) L 09/06/18 06:50 Triglycerides 70 mg/dL (0-150) 09/04/18 06:30 Cholesterol 151 mg/dL (50-200) 09/04/18 06:30 Total LDL Cholesterol 97 mg/dL (5-100) 09/04/18 06:30 HDL Cholesterol 43 mg/dL (40-60) 09/04/18 06:30 Total Amylase > 1300 U/L (25-115) H 09/04/18 06:30 Lipase 517 U/L (73-393) H 09/06/18 06:50 Beta HCG, Quant < 1.0 mIU/ml 09/03/18 16:44 lipase down further, LFTs normal wbc coming down Problem List - Problems (1) Acute biliary pancreatitis without infection or necrosis Assessment/Plan: admitted to medicine continue IVF for now, will lower rate will start clears - would not advance yet if increased or recurrent pain, to stop and tell RN/MD GI following trend labs including lipase bacteremia with Klebsiella, on Zosyn per ID pain meds prn - nonnarcotics first line, morphine breakthrough only encouraged to ambulate in halls, use IS, be OOB planning lap possible open cholecystectomy Sunday discussed with Dr. Navas Code(s): K85.10 - BILIARY ACUTE PANCREATITIS WITHOUT NECROSIS OR INFECTION (2) Bacteremia due to Gram-negative bacteria Assessment/Plan: Klebsiella, sens to Zosyn ID following repeat cx neg to date Code(s): R78.81 - BACTEREMIA (3) Calculus of gallbladder and bile duct w/o cholecystitis or obstruction Code(s): K80.70 - CALCULUS OF GB AND BILE DUCT W/O CHOLECYST W/O OBSTRUCTION (4) Disease of digestive system complicating puerperium Assessment/Plan: 1 month - will need to pump & dump until 48 hours after last contraindicated medication intake Code(s): O99.63 - DISEASES OF THE DIGESTIVE SYSTEM COMPLICATING THE PUERPERIUM (5) Epigastric abdominal pain Code(s): R10.13 - EPIGASTRIC PAIN (6) Nausea and vomiting Code(s): R11.2 - NAUSEA WITH VOMITING, UNSPECIFIED Qualifiers: Vomiting type: unspecified Vomiting Intractability: non-intractable Qualified Code(s): R11.2 - Nausea with vomiting, unspecified
[2018-09-06 18:52] LABS: ALBUMIN 2.7 g/dl (3.4-5.0); ALK PHOS 100 U/L (45-117); ANION GAP 8 MMOL/L (8-16); BILIRUBIN,TOTAL 0.6 mg/dL (0.2-1); BLOOD UREA NITROGEN 3 mg/dL (7-18); CALCIUM 8.4 mg/dL (8.5-10.1); CHLORIDE 104 mmol/L (98-107); CO2 26 mmol/L (21-32); CREATININE 0.5 mg/dL (0.55-1.3); GLUCOSE,RANDOM 132 mg/dL (74-106); POTASSIUM 3.6 mmol/L (3.5-5.1); SGOT/AST 13 U/L (15-37); SGPT/ALT 22 U/L (13-61); SODIUM 138 mmol/L (136-145); TOT PROT 6.4 g/dl (6.4-8.2)
--- NOTE | 2018-09-06 19:10 | PN ---
Teaching Attending Note Name of Resident: Felix Troy ATTENDING PHYSICIAN STATEMENT I saw and evaluated the patient. I reviewed the resident's note and discussed the case with the resident. I agree with the resident's findings and plan as documented. SUBJECTIVE: feels much better OBJECTIVE: NAD, awake , and alert Cv: RRR, no mRG Lungs: CTAB. ext: no edema Abd: soft ND, no TTP . nl BS ASSESSMENT AND PLAN: 28 y/o lady with no significant PMH who presented with abd pain and was found to have acute pancreatitis and acute cholecystitis 1- Acute gall stone pancreatitis and cholecystitis . with Klebsiella bacteremia - cont zosyn - follow blood cx - D/w Dr. Licea. CCY on Sunday - D/w Dr. Rosales. - clears HLOC :
[2018-09-07] MEDS ORDERED: DEXTROSE 5%-WATER 100 ML IVPB ONE ×4 (02:07→21:02)
[2018-09-07] MEDS ORDERED: PIPERACILLIN/TAZOBACTAM 4.5 GM VIAL IVPB ONE ×4 (02:07→21:01)
[2018-09-07] MEDS: PIPERACILLIN/TAZOB 4.5 GM 4.5 GM in DEXTROSE 5%-WATER 100 ML IVPB SCH ×4 (02:46→21:36)
[2018-09-07 08:40] LABS: BASO % 0.3 % (0-2.0); EOS % 1.6 % (0-4.5); HEMATOCRIT 34.9 % (32.4-45.2); HEMOGLOBIN 11.6 GM/dL (10.7-15.3); LYMPH % 10.5 % (8-40); MCH 30.5 pg (25.7-33.7); MCHC 33.2 g/dl (32.0-36.0); MEAN CELL VOLUME 91.9 fl (80-96); MONO % 10.8 % (3.8-10.2); NEUT % 76.8 % (42.8-82.8); PLATELET COUNT 251 K/MM3 (134-434); RDW 13.7 % (11.6-15.6); WHITE BLOOD COUNT 12.5 K/mm3 (4.0-10.0)
[2018-09-07 09:32] LABS: ALBUMIN 2.7 g/dl (3.4-5.0); ALK PHOS 94 U/L (45-117); ANION GAP 9 MMOL/L (8-16); BILIRUBIN,TOTAL 0.6 mg/dL (0.2-1); CALCIUM 8.2 mg/dL (8.5-10.1); CHLORIDE 106 mmol/L (98-107); CO2 26 mmol/L (21-32); CREATININE 0.5 mg/dL (0.55-1.3); GLUCOSE,RANDOM 102 mg/dL (74-106); LIPASE 502 U/L (73-393); PHOSPHOROUS 3.3 mg/dL (2.5-4.9); POTASSIUM 3.3 mmol/L (3.5-5.1); SGOT/AST 10 U/L (15-37); SGPT/ALT 20 U/L (13-61); SODIUM 140 mmol/L (136-145); TOT PROT 6.4 g/dl (6.4-8.2)
[2018-09-07 09:53] LABS: BLOOD UREA NITROGEN 2 mg/dL (7-18)
[2018-09-07] MEDS ORDERED: ACETAMINOPHEN 325 MG TABLET (FP) PO PRN (11:30)
--- NOTE | 2018-09-07 11:33 | PN ---
Progress Note, Physician History of Present Illness: patient doing well no abd pain now looks much better - Current Medication List Current Medications: Active Medications Acetaminophen (Tylenol -) 650 mg PO Q6H PRN PRN Reason: PAIN LEVEL 6-10 Piperacillin Sod/Tazobactam (Sod 4.5 gm/ Dextrose) 100 mls @ 200 mls/hr IVPB Q6H-IV SANKET Last Admin: 09/07/18 09:53 Dose: 200 mls/hr Ondansetron HCl (Zofran Injection) 4 mg IVPUSH Q6H PRN PRN Reason: NAUSEA - Objective Vital Signs: Vital Signs Temperature 98.6 F 09/07/18 09:30 Pulse Rate 84 09/07/18 09:30 Respiratory Rate 20 09/07/18 09:30 Blood Pressure 106/64 09/07/18 09:30 O2 Sat by Pulse Oximetry (%) 96 09/07/18 10:00 Constitutional: Yes: No Distress, Calm Cardiovascular: Yes: Regular Rate and Rhythm Respiratory: Yes: Regular, CTA Bilaterally Gastrointestinal: Yes: Normal Bowel Sounds, Hypoactive Bowel Sounds Musculoskeletal: Yes: WNL Extremities: Yes: WNL Neurological: Yes: Alert, Oriented Psychiatric: Yes: Alert, Oriented Labs: CBC, BMP 09/07/18 08:00 09/07/18 08:00 INR, PTT INR 1.21 (0.83-1.09) H 09/04/18 06:30 Assessment/Plan Problem List - Problems (1) Acute biliary pancreatitis without infection or necrosis Code(s): K85.10 - BILIARY ACUTE PANCREATITIS WITHOUT NECROSIS OR INFECTION (2) Calculus of gallbladder and bile duct w/o cholecystitis or obstruction Code(s): K80.70 - CALCULUS OF GB AND BILE DUCT W/O CHOLECYST W/O OBSTRUCTION (3) Disease of digestive system complicating puerperium Code(s): O99.63 - DISEASES OF THE DIGESTIVE SYSTEM COMPLICATING THE PUERPERIUM (4) Epigastric abdominal pain Code(s): R10.13 - EPIGASTRIC PAIN (5) Nausea and vomiting Code(s): R11.2 - NAUSEA WITH VOMITING, UNSPECIFIED Qualifiers: Vomiting type: unspecified Vomiting Intractability: non-intractable Qualified Code(s): R11.2 - Nausea with vomiting, unspecified fever leukocytosis gm negative bacteremia patient has cleared her bacteremia,wbc trending down plan continue abx monitor wbc monitor fevers rest as per the team rest as per surgery
--- NOTE | 2018-09-07 11:36 | PN ---
Progress Note, Physician History of Present Illness: 28yo [place] F, 1 month from uncomplicated 1 week past due date, with gallstone pancreatitis and bacteremia with Klebsiella, sensitive to Zosyn, which she is on per ID. Repeat blood culture 09/05 has no growth to date. Feeling better, no pain. Using IS. Ambulating in room. Voiding ok, had soft BM. Tolerating clear liquids. - Current Medication List Current Medications: Active Medications Piperacillin Sod/Tazobactam (Sod 4.5 gm/ Dextrose) 100 mls @ 200 mls/hr IVPB Q6H-IV SANKET Last Admin: 09/07/18 09:53 Dose: 200 mls/hr Ondansetron HCl (Zofran Injection) 4 mg IVPUSH Q6H PRN PRN Reason: NAUSEA - Objective Vital Signs: Vital Signs Temperature 98.6 F 09/07/18 09:30 Pulse Rate 84 09/07/18 09:30 Respiratory Rate 20 09/07/18 09:30 Blood Pressure 106/64 09/07/18 09:30 O2 Sat by Pulse Oximetry (%) 96 09/07/18 10:00 Constitutional: Yes: Well Nourished, No Distress, Calm Eyes: Yes: Conjunctiva Clear, EOM Intact. No: Sclera Icterus HENT: Yes: Atraumatic, Normocephalic Gastrointestinal: Yes: Soft. No: Distention, Tenderness, Tenderness, Epigastrium Extremities: No: Cool, Cyanosis Integumentary: No: Jaundice, Rash Neurological: Yes: Alert, Oriented Labs: CBC, BMP 09/07/18 08:00 09/07/18 08:00 CMP Sodium 140 mmol/L (136-145) 09/07/18 08:00 Potassium 3.3 mmol/L (3.5-5.1) L 09/07/18 08:00 Chloride 106 mmol/L (98-107) 09/07/18 08:00 Carbon Dioxide 26 mmol/L (21-32) 09/07/18 08:00 Anion Gap 9 MMOL/L (8-16) 09/07/18 08:00 BUN 2 mg/dL (7-18) L* 09/07/18 08:00 Creatinine 0.5 mg/dL (0.55-1.3) L 09/07/18 08:00 Creat Clearance w eGFR > 60 (>60) 09/07/18 08:00 Random Glucose 102 mg/dL (74-106) 09/07/18 08:00 Calcium 8.2 mg/dL (8.5-10.1) L 09/07/18 08:00 Phosphorus 3.3 mg/dL (2.5-4.9) 09/07/18 08:00 Magnesium 2.0 mg/dL (1.8-2.4) 09/07/18 08:00 Total Bilirubin 0.6 mg/dL (0.2-1) 09/07/18 08:00 Direct Bilirubin 0.2 mg/dL (0.0-0.2) 09/04/18 06:30 AST 10 U/L (15-37) L 09/07/18 08:00 ALT 20 U/L (13-61) 09/07/18 08:00 Alkaline Phosphatase 94 U/L (45-117) 09/07/18 08:00 C-Reactive Protein 18.5 MG/DL (0.00-0.3) H 09/06/18 06:50 Total Protein 6.4 g/dl (6.4-8.2) 09/07/18 08:00 Albumin 2.7 g/dl (3.4-5.0) L 09/07/18 08:00 Triglycerides 70 mg/dL (0-150) 09/04/18 06:30 Cholesterol 151 mg/dL (50-200) 09/04/18 06:30 Total LDL Cholesterol 97 mg/dL (5-100) 09/04/18 06:30 HDL Cholesterol 43 mg/dL (40-60) 09/04/18 06:30 Total Amylase > 1300 U/L (25-115) H 09/04/18 06:30 Lipase 502 U/L (73-393) H 09/07/18 08:00 Beta HCG, Quant < 1.0 mIU/ml 09/03/18 16:44 wbc and lipase down K low today Problem List - Problems (1) Acute biliary pancreatitis without infection or necrosis Assessment/Plan: continue clear liquids until surgery if increased or recurrent pain, to stop and tell RN/MD will stop IVF unless pain returns replete K+ GI following trend labs, wbc coming down bacteremia with Klebsiella, clearing; on Zosyn per ID pain meds prn - nonnarcotics first line encouraged to ambulate in halls, use IS, be OOB planning lap possible open cholecystectomy Sunday morning Code(s): K85.10 - BILIARY ACUTE PANCREATITIS WITHOUT NECROSIS OR INFECTION (2) Bacteremia due to Gram-negative bacteria Assessment/Plan: Klebsiella, sens to Zosyn ID following repeat cx neg to date x 2d Code(s): R78.81 - BACTEREMIA (3) Calculus of gallbladder and bile duct w/o cholecystitis or obstruction Code(s): K80.70 - CALCULUS OF GB AND BILE DUCT W/O CHOLECYST W/O OBSTRUCTION (4) Disease of digestive system complicating puerperium Assessment/Plan: 1 month - will need to pump & dump until 48 hours after last contraindicated medication intake Code(s): O99.63 - DISEASES OF THE DIGESTIVE SYSTEM COMPLICATING THE PUERPERIUM (5) Epigastric abdominal pain Code(s): R10.13 - EPIGASTRIC PAIN (6) Nausea and vomiting Code(s): R11.2 - NAUSEA WITH VOMITING, UNSPECIFIED Qualifiers: Vomiting type: unspecified Vomiting Intractability: non-intractable Qualified Code(s): R11.2 - Nausea with vomiting, unspecified
[2018-09-07] MEDS ORDERED: POTASSIUM CHLORIDE TABS 20 MEQ TABLET.ER (FP) PO ONE (12:00)
--- NOTE | 2018-09-07 14:34 | PN ---
Teaching Attending Note Name of Resident: Felix Troy ATTENDING PHYSICIAN STATEMENT I saw and evaluated the patient. I reviewed the resident's note and discussed the case with the resident. I agree with the resident's findings and plan as documented. SUBJECTIVE: no abd pain , no diarrhea , no N/V. OBJECTIVE: NAD Cv: RRR, no mRG Lungs: CTAB. ext: no edema Abd: soft ND, no TTP . nl BS ASSESSMENT AND PLAN: 28 y/o lady with no significant PMH who presented with abd pain and was found to have acute pancreatitis and acute cholecystitis 1- Acute gall stone pancreatitis and cholecystitis . with Klebsiella bacteremia - fever curve improved, LFTs remains normal, and lukocytosis improved .clinically better - cont zosyn - follow blood cx ( Neg x 48 hr) - CCY on Sunday - D/w Dr. Rosales. - cont clears - replete K HLOC
--- NOTE | 2018-09-07 16:01 | PN ---
Physical Exam: SUBJECTIVE: Patient seen and examined at bedside. No complaints at this time. Feels much better. OBJECTIVE: Vital Signs Period Temp Pulse Resp BP Sys/Almodovar Pulse Ox Last 24 Hr 98.1 F-100 F 74-84 18-20 106-123/61-82 96-98 Gen: nad, lying in bed HEENT: NCAT, EOMI Neck: supple, no jvd Cardio: rrr, normal s1s2 Pulm: CTA b/l Abd: nondist, soft, NO tenderness Ext: 2+ pulses Laboratory Results - last 24 hr 09/06/18 09/07/18 09/07/18 17:45 08:00 08:00 WBC 12.5 H RBC 3.80 Hgb 11.6 Hct 34.9 MCV 91.9 MCH 30.5 MCHC 33.2 RDW 13.7 Plt Count 251 MPV 9.0 Absolute Neuts (auto) 9.6 H Neutrophils % 76.8 Lymphocytes % 10.5 D Monocytes % 10.8 H Eosinophils % 1.6 Basophils % 0.3 Nucleated RBC % 0 Sodium 138 140 Potassium 3.6 3.3 L Chloride 104 106 Carbon Dioxide 26 26 Anion Gap 8 9 BUN 3 L 2 L* Creatinine 0.5 L 0.5 L Creat Clearance w eGFR > 60 > 60 Random Glucose 132 H 102 Calcium 8.4 L 8.2 L Phosphorus 3.3 Magnesium 2.0 Total Bilirubin 0.6 0.6 AST 13 L 10 L ALT 22 20 Alkaline Phosphatase 100 94 Total Protein 6.4 6.4 Albumin 2.7 L 2.7 L Lipase 502 H 09/07/18 08:00 WBC RBC Hgb Hct MCV MCH MCHC RDW Plt Count MPV Absolute Neuts (auto) Neutrophils % Lymphocytes % Monocytes % Eosinophils % Basophils % Nucleated RBC % Sodium Potassium Chloride Carbon Dioxide Anion Gap BUN Creatinine Creat Clearance w eGFR Random Glucose Calcium Phosphorus Magnesium Total Bilirubin AST ALT Alkaline Phosphatase Total Protein Albumin Lipase Cancelled Active Medications Generic Name Dose Route Start Last Admin Trade Name Freq PRN Reason Stop Dose Admin Acetaminophen 650 mg 09/07/18 11:30 Tylenol - PO Q6H PRN PAIN LEVEL 6-10 Piperacillin Sod/Tazobactam 100 mls @ 200 mls/hr 09/05/18 09:00 09/07/18 14: 45 Sod 4.5 gm/ Dextrose IVPB 200 mls/hr Q6H-IV SANKET Administration Ondansetron HCl 4 mg 09/03/18 19:42 Zofran Injection IVPUSH Q6H PRN NAUSEA ASSESSMENT/PLAN: Pt is a 28 y/o F with no PMH who presented to ED with abd pain. Pt was admitted for pancreatitis. #Acute pancreatitis -2/2 to gall stones -Klebsiella bacteremia - resolved -zosyn -ID on board -surg on board -plan for ccy mon morning #FEN -not on fluids -lytes wnl -clears Dispo -plan for surg mon Felix Troy MD PGY-2 IM Visit type - Emergency Visit Emergency Visit: No - New Patient This patient is new to me today: No - Critical Care Critical Care patient: No - Discharge Referral Referred to [facility] No
[2018-09-07 19:20] LABS: ALBUMIN 2.7 g/dl (3.4-5.0); ALK PHOS 92 U/L (45-117); ANION GAP 10 MMOL/L (8-16); BILIRUBIN,TOTAL 0.5 mg/dL (0.2-1); CALCIUM 8.1 mg/dL (8.5-10.1); CHLORIDE 107 mmol/L (98-107); CO2 24 mmol/L (21-32); CREATININE 0.6 mg/dL (0.55-1.3); GLUCOSE,RANDOM 111 mg/dL (74-106); POTASSIUM 4.1 mmol/L (3.5-5.1); SGOT/AST 11 U/L (15-37); SGPT/ALT 21 U/L (13-61); SODIUM 141 mmol/L (136-145); TOT PROT 6.4 g/dl (6.4-8.2)
[2018-09-07 19:23] LABS: BLOOD UREA NITROGEN 2 mg/dL (7-18)
[2018-09-08] MEDS ORDERED: DEXTROSE 5%-WATER 100 ML IVPB ONE ×4 (01:12→21:30)
[2018-09-08] MEDS ORDERED: PIPERACILLIN/TAZOBACTAM 4.5 GM VIAL IVPB ONE ×4 (01:12→21:30)
[2018-09-08] MEDS: PIPERACILLIN/TAZOB 4.5 GM 4.5 GM in DEXTROSE 5%-WATER 100 ML IVPB SCH ×4 (01:59→22:00)
[2018-09-08 08:37] LABS: ALBUMIN 2.8 g/dl (3.4-5.0); ALK PHOS 93 U/L (45-117); ANION GAP 8 MMOL/L (8-16); BILIRUBIN,TOTAL 0.4 mg/dL (0.2-1); BLOOD UREA NITROGEN 3 mg/dL (7-18); CALCIUM 8.4 mg/dL (8.5-10.1); CHLORIDE 106 mmol/L (98-107); CO2 26 mmol/L (21-32); CREATININE 0.5 mg/dL (0.55-1.3); GLUCOSE,RANDOM 91 mg/dL (74-106); POTASSIUM 3.6 mmol/L (3.5-5.1); SGOT/AST 11 U/L (15-37); SGPT/ALT 18 U/L (13-61); SODIUM 140 mmol/L (136-145); TOT PROT 6.4 g/dl (6.4-8.2)
--- NOTE | 2018-09-08 14:37 | PN ---
Progress Note (short form) - Note Progress Note: Subjective: no fever or chills. No abd pain . no diarhea . Objective: Vital Signs: Last Vital Signs Temp Pulse Resp BP Pulse Ox 98.8 F 90 18 103/63 97 09/08/18 09:00 09/08/18 09:00 09/08/18 09:00 09/08/18 09:00 09/08/18 09:00 Laboratory Results - last 24 hr 09/07/18 09/08/18 18:15 07:30 Sodium 141 140 Potassium 4.1 3.6 Chloride 107 106 Carbon Dioxide 24 26 Anion Gap 10 8 BUN 2 L* 3 L Creatinine 0.6 0.5 L Creat Clearance w eGFR > 60 > 60 Random Glucose 111 H 91 Calcium 8.1 L 8.4 L Total Bilirubin 0.5 0.4 AST 11 L 11 L ALT 21 18 Alkaline Phosphatase 92 93 Total Protein 6.4 6.4 Albumin 2.7 L 2.8 L Physical Exam: NAD Cv: RRR, no mRG Lungs: CTAB. ext: no edema Abd: soft ND, no TTP . nl BS ASSESSMENT AND PLAN: 28 y/o lady with no significant PMH who presented with abd pain and was found to have acute pancreatitis and acute cholecystitis 1- Acute gall stone pancreatitis and cholecystitis . with Klebsiella bacteremia - fever resolved , and WBC improved - cont zosyn - repeat Blood cx NGTD - CCY on Sunday - D/w Dr. Rosales today -NPO after MN HLOC Visit type - Emergency Visit Emergency Visit: Yes ED Registration Date: 09/03/18 Care time: The patient presented to the Emergency Department on the above date and was hospitalized for further evaluation of their emergent condition. - New Patient This patient is new to me today: No - Critical Care Critical Care patient: No
--- NOTE | 2018-09-08 17:26 | PN ---
Progress Note, Physician History of Present Illness: 28yo [place] F, 1 month from uncomplicated 1 week past due date, with gallstone pancreatitis and bacteremia with Klebsiella, sensitive to Zosyn, which she is on per ID. Repeat blood culture 09/05 is negative to date. Feeling better, no pain. Using IS. Ambulating some. Voiding ok, passing gas, no BM today. Tolerating clear liquids. at bedside, assisted with conversation in [place]. - Current Medication List Current Medications: Active Medications Acetaminophen (Tylenol -) 650 mg PO Q6H PRN PRN Reason: PAIN LEVEL 6-10 Piperacillin Sod/Tazobactam (Sod 4.5 gm/ Dextrose) 100 mls @ 200 mls/hr IVPB Q6H-IV SANKET Last Admin: 09/08/18 15:10 Dose: 200 mls/hr Ondansetron HCl (Zofran Injection) 4 mg IVPUSH Q6H PRN PRN Reason: NAUSEA - Objective Vital Signs: Vital Signs Temperature 98.4 F 09/08/18 14:37 Pulse Rate 78 09/08/18 14:37 Respiratory Rate 18 09/08/18 14:37 Blood Pressure 112/68 09/08/18 14:37 O2 Sat by Pulse Oximetry (%) 97 09/08/18 09:00 Vital Signs Period Temp Pulse Resp BP Sys/Almodovar Pulse Ox Last 24 Hr 98.0 F-98.8 F 70-90 18-20 99-132/62-68 96-97 Constitutional: Yes: Well Nourished, No Distress, Calm Eyes: Yes: Conjunctiva Clear, EOM Intact. No: Sclera Icterus HENT: Yes: Atraumatic, Normocephalic Gastrointestinal: Yes: Soft. No: Distention, Tenderness, Tenderness, Epigastrium Breast(s): Yes: Other (not lactating anymore since first day or two here) Musculoskeletal: No: Joint Stiffness, Joint Swelling Extremities: No: Cool, Cyanosis Integumentary: Yes: Incision (healing Pfannenstiel scar). No: Jaundice, Rash Neurological: Yes: Alert, Oriented Labs: BMP 09/08/18 07:30 Microbiology 09/05/18 13:45 Blood Culture - Preliminary Blood - Peripheral Venous NO GROWTH OBTAINED AFTER 72 HOURS, INCUBATION TO CONTINUE FOR 2 DAYS. 09/05/18 12:50 Blood Culture - Preliminary Blood - Peripheral Venous NO GROWTH OBTAINED AFTER 72 HOURS, INCUBATION TO CONTINUE FOR 2 DAYS. 09/04/18 01:52 Blood Culture - Preliminary Blood - Peripheral Venous NO GROWTH OBTAINED AFTER 96 HOURS, INCUBATION TO CONTINUE FOR 1 DAYS. 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 Patient desires to proceed with operation - will take to OR tomorrow morning for above, planned for 9am. Informed consent signed for same. Code(s): K85.10 - BILIARY ACUTE PANCREATITIS WITHOUT NECROSIS OR INFECTION (2) Bacteremia due to Gram-negative bacteria Assessment/Plan: Klebsiella, sens to Zosyn ID following repeat cx neg to date Code(s): R78.81 - BACTEREMIA (3) Calculus of gallbladder and bile duct w/o cholecystitis or obstruction Code(s): K80.70 - CALCULUS OF GB AND BILE DUCT W/O CHOLECYST W/O OBSTRUCTION (4) Disease of digestive system complicating puerperium Assessment/Plan: 1 month was - will need to pump & dump until 48 hours after last contraindicated medication intake per pt/, she is not lactating anymore explained milk may come back after she gets home with baby, but she will need to wait until to resume Code(s): O99.63 - DISEASES OF THE DIGESTIVE SYSTEM COMPLICATING THE PUERPERIUM (5) Epigastric abdominal pain Code(s): R10.13 - EPIGASTRIC PAIN (6) Nausea and vomiting Code(s): R11.2 - NAUSEA WITH VOMITING, UNSPECIFIED Qualifiers: Vomiting type: unspecified Vomiting Intractability: non-intractable Qualified Code(s): R11.2 - Nausea with vomiting, unspecified
[2018-09-08 18:27] LABS: ALBUMIN 2.9 g/dl (3.4-5.0); ALK PHOS 98 U/L (45-117); ANION GAP 9 MMOL/L (8-16); BILIRUBIN,TOTAL 0.4 mg/dL (0.2-1); CALCIUM 8.4 mg/dL (8.5-10.1); CHLORIDE 106 mmol/L (98-107); CO2 27 mmol/L (21-32); CREATININE 0.5 mg/dL (0.55-1.3); GLUCOSE,RANDOM 88 mg/dL (74-106); SGOT/AST 10 U/L (15-37); SGPT/ALT 20 U/L (13-61); SODIUM 141 mmol/L (136-145); TOT PROT 6.9 g/dl (6.4-8.2)
[2018-09-08 18:29] LABS: BLOOD UREA NITROGEN 2 mg/dL (7-18)
[2018-09-09] MEDS ORDERED: LACTATED RINGERS SOLUTION 1,000 ML/1,000 ML INFUS.BAG IV SCH ×2 (00:01→12:03)
[2018-09-09] MEDS ORDERED: DEXTROSE 5%-WATER 100 ML IVPB ONE ×4 (02:15→21:45)
[2018-09-09] MEDS ORDERED: PIPERACILLIN/TAZOBACTAM 4.5 GM VIAL IVPB ONE ×4 (02:15→21:44)
[2018-09-09] MEDS: PIPERACILLIN/TAZOB 4.5 GM 4.5 GM in DEXTROSE 5%-WATER 100 ML IVPB SCH ×4 (02:29→22:19)
[2018-09-09 07:52] LABS: BASO % 0.7 % (0-2.0); EOS % 4.7 % (0-4.5); HEMATOCRIT 34.2 % (32.4-45.2); HEMOGLOBIN 11.6 GM/dL (10.7-15.3); LYMPH % 10.3 % (8-40); MCH 31.1 pg (25.7-33.7); MEAN CELL VOLUME 91.4 fl (80-96); MEAN PLT VOLUME 8.6 fl (7.5-11.1); NEUT % 74.3 % (42.8-82.8); PLATELET COUNT 332 K/MM3 (134-434); RBC 3.74 M/mm3 (3.60-5.2); WHITE BLOOD COUNT 8.9 K/mm3 (4.0-10.0)
[2018-09-09] MEDS ORDERED: LIDOCAINE HCL/PF 2% SDV 5ML VIAL ONE (09:36)
[2018-09-09] MEDS ORDERED: DEXAMETHASONE SOD PHOSPHATE 4 MG/1 ML VIAL ONE (09:36)
[2018-09-09] MEDS ORDERED: fentaNYL CITRATE 250 MCG/5 ML VIAL ONE (09:37)
[2018-09-09] MEDS ORDERED: MIDAZOLAM HCL 2 MG/2 ML SINGLE DOSE VIAL ONE (09:37)
[2018-09-09] MEDS ORDERED: ROCURONIUM BROMIDE 50 MG/5 ML VIAL ONE (09:37)
[2018-09-09] MEDS ORDERED: BUPIVACAINE HCL/PF 0.5% (5MG/ML) 10 ML VIAL ONE (09:44)
[2018-09-09] MEDS ORDERED: GLYCOPYRROLATE 0.2 MG/1 ML VIAL ONE (11:05)
[2018-09-09] MEDS ORDERED: NEOSTIGMINE METHYLSULFATE 0.5 MG/ML - 10 ML MDV ONE (11:05)
[2018-09-09] MEDS ORDERED: BUPIVACAINE HCL/PF 0.5% (5MG/ML) 10 ML VIAL IJ ONE ×2 (11:17)
[2018-09-09] MEDS ORDERED: BENZOIN TINCTURE SWABSTICK TP ONE (11:23)
[2018-09-09] MEDS ORDERED: PROMETHAZINE HCL 25 MG/1 ML VIAL IVPUSH PRN (11:43)
[2018-09-09] MEDS ORDERED: ONDANSETRON 4 MG/2 ML VIAL IVPUSH PRN ×2 (11:43→12:03)
[2018-09-09] MEDS ORDERED: LACTATED RINGERS SOLUTION 1,000 ML IV SCH (11:45)
[2018-09-09] MEDS ORDERED: ACETAMINOPHEN 500 MG TABLET (FP) PO ONE (11:55)
--- NOTE | 2018-09-09 11:55 | OP ---
Operative Note - Note: Operative Date: 09/09/18 Pre-Operative Diagnosis: gallstone pancreatitis, bacteremia Operation: laparoscopic cholecystectomy Findings: elongated gallbladder, critical view obtained; small stones palpable in gb after removal Post-Operative Diagnosis: Same as Pre-op Surgeon: Beau Licea Activated Sludge Attendant: Nikolas Marcial (humaira/Sinai Seaman, MS3) Anesthesiologist/STRUCTURAL DRAFTSMAN: Ivan Quiñonez Anesthesia: General, Local (20ml 0.5% marcaine) Specimens Removed: gallbladder to pathology Estimated Blood Loss (mls): 5 Fluid Volume Replaced (mls): 1,800 (crystalloid) Operative Report Dictated: Yes
[2018-09-09] MEDS ORDERED: ACETAMINOPHEN 1000 MG/100 ML VIAL (NON FORMULARY) IVPB ONE (12:00)
[2018-09-09] MEDS ORDERED: ACETAMINOPHEN INJECTION 100 ML IVPB ONE (12:10)
--- NOTE | 2018-09-09 12:24 | PN ---
Progress Note, Physician History of Present Illness: stable post op doing well - Current Medication List Current Medications: Active Medications Acetaminophen (Tylenol -) 650 mg PO Q6H SANKET Lactated Ringer's (Lactated Ringers Solution) 1,000 ml in 1,000 mls @ 83 mls/ hr IV ASDIR SANKET Piperacillin Sod/Tazobactam (Sod 4.5 gm/ Dextrose) 100 mls @ 200 mls/hr IVPB Q6H-IV SANKET Ibuprofen (Motrin -) 600 mg PO Q6H SANKET Ondansetron HCl (Zofran Injection) 4 mg IVPUSH Q6H PRN PRN Reason: NAUSEA Multivit/Folic Acid/Iron ( Vitamins (Sjr) -) 1 tab PO DAILY SANKET - Objective Vital Signs: Vital Signs Temperature 97.8 F 09/09/18 11:37 Pulse Rate 68 09/09/18 11:37 Respiratory Rate 18 09/09/18 11:37 Blood Pressure 125/75 09/09/18 11:37 O2 Sat by Pulse Oximetry (%) 96 09/09/18 11:37 Constitutional: Yes: No Distress, Calm Cardiovascular: Yes: Regular Rate and Rhythm Respiratory: Yes: Regular, CTA Bilaterally Gastrointestinal: Yes: Normal Bowel Sounds, Soft Musculoskeletal: Yes: WNL Extremities: Yes: WNL Wound/Incision: Yes: Clean/Dry Neurological: Yes: Alert, Oriented Psychiatric: Yes: Alert, Oriented Labs: CBC, BMP 09/09/18 07:30 09/08/18 17:35 INR, PTT INR 1.21 (0.83-1.09) H 09/04/18 06:30 Assessment/Plan Problem List - Problems (1) Acute biliary pancreatitis without infection or necrosis Code(s): K85.10 - BILIARY ACUTE PANCREATITIS WITHOUT NECROSIS OR INFECTION (2) Calculus of gallbladder and bile duct w/o cholecystitis or obstruction Code(s): K80.70 - CALCULUS OF GB AND BILE DUCT W/O CHOLECYST W/O OBSTRUCTION (3) Disease of digestive system complicating puerperium Code(s): O99.63 - DISEASES OF THE DIGESTIVE SYSTEM COMPLICATING THE PUERPERIUM (4) Epigastric abdominal pain Code(s): R10.13 - EPIGASTRIC PAIN (5) Nausea and vomiting Code(s): R11.2 - NAUSEA WITH VOMITING, UNSPECIFIED Qualifiers: Vomiting type: unspecified Vomiting Intractability: non-intractable Qualified Code(s): R11.2 - Nausea with vomiting, unspecified fever leukocytosis gm negative bacteremia patient has cleared her bacteremia,wbc trending down plan will stop all abx tomorrow rest as per the team patient improving
[2018-09-09] MEDS ORDERED: IBUPROFEN 600 MG TABLET (FP) PO SCH (15:00)
[2018-09-09] MEDS: IBUPROFEN 600 MG TABLET (FP) PO SCH ×2 (15:32→22:18)
--- NOTE | 2018-09-09 17:36 | PN ---
Teaching Attending Note Name of Resident: Thee Walker ATTENDING PHYSICIAN STATEMENT I saw and evaluated the patient. I reviewed the resident's note and discussed the case with the resident. I agree with the resident's findings and plan as documented. SUBJECTIVE: No fever or chills . had her sx today , still no flatus, no BM . no SOB . mild abd pain . No N/V OBJECTIVE: NAD Cv: RRR, no MRG Lungs: CTAB. ext: no edema Abd: soft ND, no TTP . nl BS ASSESSMENT AND PLAN: 28 y/o lady with no significant PMH who presented with abd pain and was found to have acute pancreatitis and acute cholecystitis 1- Acute gall stone pancreatitis and cholecystitis . with Klebsiella bacteremia - s/p CCY today - doing well . - cont zosyn - repeat Blood cx NGTD - low fat diet possible dc tomorrow
[2018-09-09] MEDS ORDERED: ACETAMINOPHEN 325 MG TABLET (FP) PO SCH (18:00)
[2018-09-09] MEDS: ACETAMINOPHEN 325 MG TABLET (FP) PO SCH (18:43)
[2018-09-10] MEDS: ACETAMINOPHEN 325 MG TABLET (FP) PO SCH ×2 (01:06→06:21)
[2018-09-10] MEDS ORDERED: DEXTROSE 5%-WATER 100 ML IVPB ONE ×2 (02:33→09:15)
[2018-09-10] MEDS ORDERED: PIPERACILLIN/TAZOBACTAM 4.5 GM VIAL IVPB ONE ×2 (02:33→09:15)
[2018-09-10] MEDS: IBUPROFEN 600 MG TABLET (FP) PO SCH ×2 (02:42→09:19)
[2018-09-10] MEDS: PIPERACILLIN/TAZOB 4.5 GM 4.5 GM in DEXTROSE 5%-WATER 100 ML IVPB SCH ×2 (02:42→09:20)
--- NOTE | 2018-09-10 05:49 | PN ---
Physical Exam: SUBJECTIVE: Patient seen and examined. No Acute events overnight. Pt. denies any complaints at this time. OBJECTIVE: Vital Signs Period Temp Pulse Resp BP Sys/Almodovar Pulse Ox Last 24 Hr 97.6 F-98.2 F 60-75 16-18 111-148/71-84 95-100 GENERAL: The patient is awake, alert, in no acute distress. EYES: sclera anicteric, conjunctiva clear. No ptosis. ENT: Ears normal, nares patent, oropharynx clear without exudates, moist mucous membranes. NECK: Trachea midline, full range of motion, supple. LUNGS: Breath sounds equal, clear to auscultation bilaterally, no wheezes, no crackles, no accessory muscle use. HEART: Regular rate and rhythm, S1, S2 without murmur, rub or gallop. ABDOMEN: Soft, nontender, nondistended, normoactive bowel sounds, no guarding, no rebound, tympanic to percussion. EXTREMITIES: 2+ dorsal pedal pulses, warm, no calf tenderness, well-perfused, trace edema. NEUROLOGICAL: Normal speech, gait not observed. PSYCH: Normal mood, normal affect. SKIN: Warm, dry, normal turgor Laboratory Results - last 24 hr 09/09/18 07:30 WBC 8.9 RBC 3.74 Hgb 11.6 Hct 34.2 MCV 91.4 MCH 31.1 MCHC 34.0 RDW 14.0 Plt Count 332 D MPV 8.6 Absolute Neuts (auto) 6.7 Neutrophils % 74.3 Lymphocytes % 10.3 Monocytes % 10.0 Eosinophils % 4.7 H D Basophils % 0.7 Nucleated RBC % 0 Active Medications A 28 y. o. Estonian speaking F with abdominal pain and vomiting, admitted for pancreatitis 2/2 biliary sludge. #Gastroenterology -Acute abdominal pain 2/2 acute pancreatitis 2/2 inspissated biliary sludge No vomiting since admission. MRCP: Cholelithiasis w/ cholecystitis, irregular gallbladder dome w/ septations , cannot r/o gangrenous gallbladder, no stones in CBD, no pancreaticobiliary ductal dilatation Lipase trending down, WBC trending down c/w trending CMPs Q12H for LFTs, LFTs trending down indicating passed stone. If LFTs rise suddenly CALL Surgery, as this is medical emergency. Per Surgery, will wait until Gallbladder cools down, with CCY tentatively planned for Sunday. c/w NPO c/w IVF Pain control with non-narcotics first line. GI consult(Dr. Holman) appreciated, if pain or WBCs continue to rise, would reccommend imaging w/ contrast Bilirubin unremarkable f/u Rpt. BCx. -Nausea-resolved c/w Zofran 4mg PRN #Infectious Disease -Bacteremia BCx. Positive for Klebsiella sensitive to Zosyn f/u repeat BCx.s c/w Zosyn #FEN -Switched to D5-LR @ 150ml/hr b/c Pt. is NPO -monitor electrolytes, replete if needed -NPO #Ppx. DVT. -SCDs -Early Ambulation ASSESSMENT/PLAN: Visit type - Emergency Visit Emergency Visit: Yes ED Registration Date: 09/03/18 Care time: The patient presented to the Emergency Department on the above date and was hospitalized for further evaluation of their emergent condition. - New Patient This patient is new to me today: No - Critical Care Critical Care patient: No - Discharge Referral Referred to [facility] Med P.C.: No
[2018-09-10 05:55] VITALS: BP 129/79; PULSE 56; TEMP 98.2
[2018-09-10 07:29] LABS: HEMATOCRIT 31.8 % (32.4-45.2); HEMOGLOBIN 10.3 GM/dL (10.7-15.3); MCH 29.7 pg (25.7-33.7); MCHC 32.4 g/dl (32.0-36.0); MEAN CELL VOLUME 91.8 fl (80-96); MEAN PLT VOLUME 8.3 fl (7.5-11.1); PLATELET COUNT 348 K/MM3 (134-434); RBC 3.47 M/mm3 (3.60-5.2); RDW 13.6 % (11.6-15.6); WHITE BLOOD COUNT 9.4 K/mm3 (4.0-10.0)
--- NOTE | 2018-09-10 08:34 | DS ---
Physical Exam: SUBJECTIVE: Patient seen and examined. Pt. had no acute events overnight. Pt. is passing urine and endorses 1 small loose BM overnight. Pt. denies pain at this time. OBJECTIVE: Vital Signs Period Temp Pulse Resp BP Sys/Almodovar Pulse Ox Last 24 Hr 97.6 F-98.2 F 56-75 16-18 111-148/71-84 95-100 PHYSICAL EXAM GENERAL: The patient is awake, alert, and fully oriented, in no acute distress. EYES: sclera anicteric, conjunctiva clear. ENT: Ears normal, nares patent, oropharynx clear without exudates, moist mucous membranes. LUNGS: Breath sounds equal, clear to auscultation bilaterally, no wheezes, no crackles, no accessory muscle use. HEART: Regular rate and rhythm, S1, S2 without murmur ABDOMEN: Soft, nontender, nondistended, normoactive bowel sounds, no guarding, no rebound, no erythema EXTREMITIES: 2+ dorsal pedal pulses, no calf tenderness, warm, well-perfused, no edema. NEUROLOGICAL: Normal speech, gait not observed. PSYCH: Normal mood, normal affect. SKIN: Warm, dry, normal turgor, c/d/i- wound dressings LABS Laboratory Results - last 24 hr 09/10/18 06:40 WBC 9.4 RBC 3.47 L Hgb 10.3 L Hct 31.8 L MCV 91.8 MCH 29.7 MCHC 32.4 RDW 13.6 Plt Count 348 MPV 8.3 HOSPITAL COURSE: Date of Admission:09/03/18 Date of Discharge: 09/10/18 Pt. admitted for abdominal pain 2/2 pancreatitis. MRCP showed cholelithiasis w/ cholecystitis, irregular gallbladder dome w/ septations but no CBD dilatation or obstructing calculus. Pt. received cholecystectomy. Pt. treated with empiric antibiotics and IV fluids. Consults with Gastroenterology, Infectious Disease and Surgery appreciated. Post-op management per surgery as mentioned below. Hospital course discussed and agreed upon with Pt., family and medical staff. Minutes to complete discharge: 32 Discharge Summary Reason For Visit: PANCREATITIS/CHOLELITHIASIS Current Active Problems Acute biliary pancreatitis without infection or necrosis (Acute) Bacteremia due to Gram-negative bacteria (Acute) Calculus of gallbladder and bile duct w/o cholecystitis or obstruction (Acute) Disease of digestive system complicating puerperium (Acute) Epigastric abdominal pain (Acute) Nausea and vomiting (Acute) Condition: Good - Instructions Diet, Activity, Other Instructions: Remember to "pump and dump" breast milk until Sunday night/ morning, then you may resume breast-feeding if you choose. (Wait at least 48 hours after last medicine that baby cannot have, like antibiotics or narcotics.) Postoperative instructions: You had a laparoscopic cholecystectomy on 09/09/[address] Beau Licea of [facility]. Activity: Resume your usual activities gradually, but no heavy exertion or lifting more than 10-15 pounds for 1 month. Remove dressings 48 hours (2 days) after surgery; sticky tapes underneath will fall off by themselves. You may shower daily starting then, just pat the incision areas dry. No bath or swimming until skin incisions have healed. Eat lightly at first, but advance to your usual diet as tolerated. Pain: For pain, you may use and alternate Tylenol (acetaminophen) 1-2 pills and/ or ibuprofen 200 mg (1-3 pills) every 6 hours each as needed; this means that you can take one OR the other at 3-hour intervals. Do not take more than 4000mg of acetaminophen in a day. Take medications as prescribed or indicated on the labeling. Follow-up: Call Dr. Licea's office at [phone] to make your postop appointment (Sunday in approximately 2 weeks after surgery). Clinic is held in the Diagnostic Center on the first floor of [facility]. Call the office if you have: * increasing pain not responsive to pain medication * fever of 101F or higher * vomiting * unusual or increasing bleeding or drainage from wounds * increasing redness or swelling at wound sites Please see your Primary Care Physician within 1-2 weeks. Please call [phone], to make an appointment with a Primary Care Physician if you do not have one. Please return to the ER if you are experiencing increasing abdominal pain, fever , chills, constipation, or nausea and vomiting that won't stop. low fat diet Referrals: Beau Licea MD [Staff Physician] - 2 Weeks (you MUST CALL office for appointment and time) Disposition: HOME - Home Medications Comprehensive Discharge Medication List: Ambulatory Orders Pnv No.95/Ferrous Fum/Folic AC [ Multivitamin Tablet] 1 each PO DAILY This patient is new to me today: No Emergency Visit: Yes ED Registration Date: 09/03/18 Care time: The patient presented to the Emergency Department on the above date and was hospitalized for further evaluation of their emergent condition. Critical Care patient: No - Discharge Referral Referred to [facility] Med P.C.: No
[2018-09-10 08:37] LABS: ALBUMIN 2.7 g/dl (3.4-5.0); ALK PHOS 80 U/L (45-117); ANION GAP 9 MMOL/L (8-16); BILIRUBIN,TOTAL 0.3 mg/dL (0.2-1); BLOOD UREA NITROGEN 6 mg/dL (7-18); CALCIUM 8.6 mg/dL (8.5-10.1); CHLORIDE 105 mmol/L (98-107); CO2 25 mmol/L (21-32); CREATININE 0.5 mg/dL (0.55-1.3); GLUCOSE,RANDOM 76 mg/dL (74-106); MAGNESIUM 2.1 mg/dL (1.8-2.4); PHOSPHOROUS 3.6 mg/dL (2.5-4.9); POTASSIUM 3.9 mmol/L (3.5-5.1); SGOT/AST 13 U/L (15-37); SGPT/ALT 18 U/L (13-61); SODIUM 138 mmol/L (136-145); TOT PROT 6.3 g/dl (6.4-8.2)
--- NOTE | 2018-09-10 09:00 | PN ---
Teaching Attending Note Name of Resident: Thee Walker ATTENDING PHYSICIAN STATEMENT I saw and evaluated the patient. I reviewed the resident's note and discussed the case with the resident. I agree with the resident's findings and plan as documented. SUBJECTIVE: parts interpreter phone used. has no pain, or fever , no N/V . tolerated diet OBJECTIVE: NAD Cv: RRR, no MRG Lungs: CTAB. ext: no edema Abd: soft ND, no TTP . nl BS ASSESSMENT AND PLAN: 28 y/o lady with no significant PMH who presented with abd pain and was found to have acute pancreatitis and acute cholecystitis 1- Acute gall stone pancreatitis and cholecystitis . with Klebsiella bacteremia - s/p CCY yesterday - doing well . no more need for Abx - repeat Blood cx NGTD - low fat diet - f/u with sx after dc . she has PCP , but does not remember name. she will follow with in 1 week low fat diet. she understands Dc home
--- NOTE | 2018-09-10 09:21 | PN ---
Progress Note, Physician History of Present Illness: s/p lap donell yesterday, feeling well. Seen and examined up in room. Ambulating , voiding. Tolerating diet, pain controlled with Tyl/Ibu alternating. - Current Medication List Current Medications: Active Medications Acetaminophen (Tylenol -) 650 mg PO Q6H [facility] Last Admin: 09/10/18 06:21 Dose: 650 mg Lactated Ringer's (Lactated Ringers Solution) 1,000 ml in 1,000 mls @ 83 mls/ hr IV ASDIR [facility] Last Admin: 09/09/18 13:43 Dose: Not Given Piperacillin Sod/Tazobactam (Sod 4.5 gm/ Dextrose) 100 mls @ 200 mls/hr IVPB Q6H-IV [facility] Last Admin: 09/10/18 02:42 Dose: 200 mls/hr Ibuprofen (Motrin -) 600 mg PO Q6H [facility] Last Admin: 09/10/18 02:42 Dose: 600 mg Ondansetron HCl (Zofran Injection) 4 mg IVPUSH Q6H PRN PRN Reason: NAUSEA Multivit/Folic Acid/Iron ( Vitamins (Sjr) -) 1 tab PO DAILY [facility] - Objective Vital Signs: Vital Signs Temperature 98.2 F 09/10/18 05:53 Pulse Rate 56 L 09/10/18 05:53 Respiratory Rate 18 09/10/18 05:53 Blood Pressure 129/79 09/10/18 05:53 O2 Sat by Pulse Oximetry (%) 96 09/09/18 14:36 Constitutional: Yes: Well Nourished, No Distress, Calm Eyes: Yes: Conjunctiva Clear, EOM Intact. No: Sclera Icterus HENT: Yes: Atraumatic, Normocephalic Gastrointestinal: Yes: Soft, Distention (minimal), Tenderness (minimal umbilical incisional tenderness only). No: Tenderness, Rebound Musculoskeletal: No: Joint Stiffness, Joint Swelling Extremities: No: Cool, Cyanosis Integumentary: Yes: Incision (x4 dressed). No: Jaundice, Rash Wound/Incision: Yes: Steri Strips (under dressings), Dressing Dry and Intact (x4 , few with scant serous dried staining). No: Dressing Removed Neurological: Yes: Alert, Oriented. No: Unsteady Gait Labs: CBC, BMP 09/10/18 06:40 09/10/18 06:40 Problem List - Problems (1) Acute biliary pancreatitis without infection or necrosis Assessment/Plan: POD1 s/p laparoscopic cholecystectomy for gallstone pancreatitis with bacteremia (resolved) doing well ambulating, voiding, tolerating diet, pain controlled with nonnarcotics po incisions dressed, c/d/i ready for d/c home with f/u in 2 weeks to pump and dump if breast milk returns until (or at least first milk) , then may resume if able instructions in d/c plan Code(s): K85.10 - BILIARY ACUTE PANCREATITIS WITHOUT NECROSIS OR INFECTION (2) Bacteremia due to Gram-negative bacteria Assessment/Plan: Klebsiella, sens to Zosyn finished abx, gallbladder out no need for home abx f/u cx negative Code(s): R78.81 - BACTEREMIA (3) Calculus of gallbladder and bile duct w/o cholecystitis or obstruction Code(s): K80.70 - CALCULUS OF GB AND BILE DUCT W/O CHOLECYST W/O OBSTRUCTION (4) Disease of digestive system complicating puerperium Assessment/Plan: 1 month was - will need to pump & dump until 48 hours after last contraindicated medication intake per pt/, she is not lactating anymore explained milk may come back after she gets home with baby, but she will need to wait until to resume Code(s): O99.63 - DISEASES OF THE DIGESTIVE SYSTEM COMPLICATING THE PUERPERIUM (5) Epigastric abdominal pain Code(s): R10.13 - EPIGASTRIC PAIN (6) Nausea and vomiting Code(s): R11.2 - NAUSEA WITH VOMITING, UNSPECIFIED Qualifiers: Vomiting type: unspecified Vomiting Intractability: non-intractable Qualified Code(s): R11.2 - Nausea with vomiting, unspecified
[2018-09-10] MEDS ORDERED: PRENATAL VITAMINS W/ FOLIC ACID TABLET (FP) PO SCH (10:00)
--- NOTE | 2018-09-10 12:04 | PN ---
Progress Note, Physician History of Present Illness: stable post op doing well - Current Medication List Current Medications: Active Medications Acetaminophen (Tylenol -) 650 mg PO Q6H [facility] Last Admin: 09/10/18 06:21 Dose: 650 mg Lactated Ringer's (Lactated Ringers Solution) 1,000 ml in 1,000 mls @ 83 mls/ hr IV ASDIR [facility] Last Admin: 09/09/18 13:43 Dose: Not Given Piperacillin Sod/Tazobactam (Sod 4.5 gm/ Dextrose) 100 mls @ 200 mls/hr IVPB Q6H-IV [facility] Last Admin: 09/10/18 09:20 Dose: 200 mls/hr Ibuprofen (Motrin -) 600 mg PO Q6H [facility] Last Admin: 09/10/18 09:19 Dose: 600 mg Ondansetron HCl (Zofran Injection) 4 mg IVPUSH Q6H PRN PRN Reason: NAUSEA Multivit/Folic Acid/Iron ( Vitamins (Sjr) -) 1 tab PO DAILY [facility] Last Admin: 09/10/18 09:20 Dose: 1 tab - Objective Vital Signs: Vital Signs Temperature 98.2 F 09/10/18 05:53 Pulse Rate 56 L 09/10/18 05:53 Respiratory Rate 18 09/10/18 05:53 Blood Pressure 129/79 09/10/18 05:53 O2 Sat by Pulse Oximetry (%) 94 L 09/10/18 09:00 Constitutional: Yes: No Distress, Calm Cardiovascular: Yes: Regular Rate and Rhythm Respiratory: Yes: Regular, CTA Bilaterally Gastrointestinal: Yes: Soft Musculoskeletal: Yes: WNL Extremities: Yes: WNL Wound/Incision: Yes: Clean/Dry Neurological: Yes: Alert, Oriented Psychiatric: Yes: Alert, Oriented Labs: CBC, BMP 09/10/18 06:40 09/10/18 06:40 INR, PTT INR 1.21 (0.83-1.09) H 09/04/18 06:30 Assessment/Plan Problem List - Problems (1) Acute biliary pancreatitis without infection or necrosis Code(s): K85.10 - BILIARY ACUTE PANCREATITIS WITHOUT NECROSIS OR INFECTION (2) Calculus of gallbladder and bile duct w/o cholecystitis or obstruction Code(s): K80.70 - CALCULUS OF GB AND BILE DUCT W/O CHOLECYST W/O OBSTRUCTION (3) Disease of digestive system complicating puerperium Code(s): O99.63 - DISEASES OF THE DIGESTIVE SYSTEM COMPLICATING THE PUERPERIUM (4) Epigastric abdominal pain Code(s): R10.13 - EPIGASTRIC PAIN (5) Nausea and vomiting Code(s): R11.2 - NAUSEA WITH VOMITING, UNSPECIFIED Qualifiers: Vomiting type: unspecified Vomiting Intractability: non-intractable Qualified Code(s): R11.2 - Nausea with vomiting, unspecified fever leukocytosis gm negative bacteremia patient has cleared her bacteremia,wbc trending down plan stop all abx rest as per the team
--- NOTE | 2018-09-12 15:30 | PATH ---
Surgical Pathology Report Patient Name: NASH QUISPE [facility]. Rec. #: [id number] /Age/Gender: 1990 (Age: 28) / F Account: [id number] Location: [address] [place] [address]/[facility] Taken: 09/09/2018 Received: 09/09/2018 Reported: 09/12/2018 Physicians: Edouard Carlson M.D. Specimen(s) Received GALLBLADDER Clinical History Gallstone pancreatitis, bacteremia Final Diagnosis GALLBLADDER, CHOLECYSTECTOMY: CHRONIC CHOLECYSTITIS. CHOLELITHIASIS. Electronically Signed Justice Nur M.D. Gross Description Received in formalin, labeled "gallbladder," is an 8.0 x 3.4 x 3.0 cm. gallbladder with a 0.2 cm. in length portion of cystic duct attached. The outer surface is tomlinson patterson and varies from smooth to shaggy. The lumen contains green, tenacious bile as well as abundant yellow, spherical to fragmented choleliths ranging from 0.1-0.4 cm in greatest dimension. The mucosa is green and velvety with focal erosion. The wall of the gallbladder averages 0.1 cm. in thickness. Radiographer Technologist sections are submitted in one cassette. 09/10/201809/10/2018
== END 2018-09-10 12:15 | disposition home or self-care (01) | DRG 951 ==
LOC: JER 16:09 → JERBED 19:40 → J6S 09-04 00:07
PROVIDERS: ADMIT Internal Medicine; ATTEND Internal Medicine
PROC: 0FT44ZZ Resection of Gallbladder, Percutaneous Endoscopic Approach (ICD-10-PCS; principal; 2018-09-09 09:00)
DX: O99.63 Diseases of the digestive system complicating the puerperium (principal); Y83.9 Surgical procedure, unspecified as the cause of abnormal reaction of the patient, or of later complication, without mention of misadventure at the time of the procedure; E87.6 Hypokalemia; K85.10 Biliary acute pancreatitis without necrosis or infection; K85.90 Acute pancreatitis without necrosis or infection, unspecified; R78.81 Bacteremia; D72.829 Elevated white blood cell count, unspecified; R10.13 Epigastric pain; R11.2 Nausea with vomiting, unspecified
CPT/HCPCS: 36415; 71045-TC-FY; 74182-TC; 76705-TC; 80053; 80061; 81003; 81015; 82150; 82248; 83690; 83721; 83735; 84100; 84702; 84703; 85025; 85027; 85610; 85730; 86140; 86480; 86850; 86900; 86901; 87040; 87086; 87186; 88304-TC; 93005; 93010; 94010; 94760; 99284-25; J0131; J7030

== ENCOUNTER 2019-06-18 14:55 | Emergency (ER) | payer OTHER ==
[2019-06-18] MEDS ORDERED: DEXAMETHASONE LIQUID 0.5 MG/5 ML 240 ML BULK BOTTLE PO ONE (15:04)
--- NOTE | 2019-06-18 15:04 | PDOC ---
Rapid Medical Evaluation Time Seen by Provider: 06/18/19 15:03 Medical Evaluation: Allergies Allergy/AdvReac Type Severity Reaction Status Date / Time No Known Allergies Allergy Verified 09/03/18 16:22 06/18/19 15:03 HPI: Rash x 5 days PE: Raised wheels B LE ORDERS: Decadron Discharge Disposition - Diagnosis Allergic rash present on examination - Referrals - Patient Instructions - Post Discharge Activity
[2019-06-18 15:33] VITALS: BP 111/74; PULSE 82; TEMP 98.2; BMI 30.6
[2019-06-18] MEDS ORDERED: DEXAMETHASONE SOD PHOSPHATE 10 MG/1 ML VIAL ONE (16:06)
--- NOTE | 2019-06-18 16:24 | PDOC ---
History of Present Illness - General Chief Complaint: Rash Stated Complaint: RT LEG RASH / SWELLING Time Seen by Provider: 06/18/19 15:03 History Source: Patient - History of Present Illness Timing/Duration: reports: other Location: reports: extremities Past History - Past Medical History Allergies/Adverse Reactions: Allergies Allergy/AdvReac Type Severity Reaction Status Date / Time No Known Allergies Allergy Verified 06/18/19 15:33 Home Medications: Ambulatory Orders Pnv No.95/Ferrous Fum/Folic AC [ Multivitamin Tablet] 1 each PO DAILY Acetaminophen [Tylenol .Regular Strength -] 650 mg PO Q6H tablet 09/10/18 Ibuprofen [Motrin -] 600 mg PO Q6H tablet 09/10/18 Cephalexin [Keflex] 500 mg PO BID #14 capsule 06/18/19 Loratadine [Claritin] 10 mg PO DAILY #14 tablet 06/18/19 Prednisone [Deltasone] 40 mg PO DAILY #8 tablet 06/18/19 COPD: No - Immunization History Immunization Up to Date: Yes - Suicide/Smoking/Psychosocial Hx Smoking History: Unknown if ever smoked Have you smoked in the past 12 months: No Information on smoking cessation initiated: No Hx Alcohol Use: No Drug/Substance Use Hx: No Substance Use Type: None Hx Substance Use Treatment: No Review of Systems - Review of Systems Constitutional: No: Chills, Fever Integumentary: Yes: Pruritus, Rash *Physical Exam - Vital Signs Last Vital Signs Temp Pulse Resp BP Pulse Ox 98.2 F 82 16 111/74 99 06/18/19 15:30 06/18/19 15:30 06/18/19 15:30 06/18/19 15:30 06/18/19 15:30 - Physical Exam General Appearance: Yes: Appropriately Dressed. No: Apparent Distress HEENT: positive: Normal Voice Neck: positive: Supple Respiratory/Chest: negative: Respiratory Distress Integumentary: positive: Dry, Warm, Rash (8x4 cm nonblanchable, erythematous plaque to R popliteal fossa w/ sig ttp and ? incr warmth, no blisters, crepitus , no joint swelling, FROMI, able to bear weight, b/l anterior proximal thigh w/ faint eyythema) Neurologic: positive: Fully Oriented, Alert, Normal Mood/Affect ED Treatment Course - Medications Given in the ED: ED Medications Discontinued Medications Generic Name Dose Route Start Last Admin Trade Name Brandon PRN Reason Stop Dose Admin Dexamethasone 10 mg 06/18/19 15:04 06/18/19 16:08 Decadron Liquid - PO 06/18/19 15:05 10 mg ONCE ONE Administration Medical Decision Making - Medical Decision Making 06/18/19 16:41 28 yo F, no sig hx, here w/ pruritic rash to b/l LEs x several days. Has been applying cortisone to site. No obvious inciting factors See exam Hives w/ ? superimposed cellulitis to R popliteal fossa -dose of decadron here -dc w/ oral antihistamine, pred taper and keflex -reassessment in 2 days *DC/Admit/Observation/Transfer Diagnosis at time of Disposition: Pruritic rash - Discharge Dispostion Disposition: HOME Condition at time of disposition: Good - Prescriptions Prescriptions: Cephalexin [Keflex] 500 mg PO BID #14 capsule Loratadine [Claritin] 10 mg PO DAILY #14 tablet Prednisone [Deltasone] 40 mg PO DAILY #8 tablet - Referrals Referrals: Roxy Mueller [Primary Care Provider] - - Patient Instructions Additional Instructions: enriquez erupcin puede ser alrgica, germania le hemos comenzado a karrie antibiticos para la posible infeccin de enriquez rodilla [place] los medicamentos segn las indicaciones y regrese a la wilmar de emergencias en 2 murphy para verificar - Post Discharge Activity
== END 2019-06-18 16:34 | disposition home or self-care (01) ==
LOC: JERFT 14:55
DX: R21 Rash and other nonspecific skin eruption (principal)
CPT/HCPCS: 99281-25